=== PATIENT | female | born 1955 | race Hispanic/Latino ===

== ENCOUNTER 2020-04-15 06:40 | Inpatient (IN) | payer OTHER ==
[~2020-04-15] VITALS: Ht 188 cm; Wt 77.1 kg
[2020-04-15] VITALS (9 sets, daily range): BP systolic 142–154; BP diastolic 52–69
[2020-04-15] MEDS ORDERED: ACETAMINOPHEN EXTRA STRENGTH 500 MG TABLET ONE (06:52)
[2020-04-15] MEDS ORDERED: ASPIRIN 325 MG TABLET ONE (06:56)
[2020-04-15 07:00] LABS: BASOPHILS % (AUTO) 1.3 % (0.0-5.0); EOSINOPHILS % (AUTO) 6.6 % (0.0-8.0); HEMATOCRIT 34.7 % (36-48); LYMPHOCYTES % (AUTO) 31.9 % (21.0-51.0); MEAN CORPUSCULAR HEMOGLOBIN 29.9 pg (27.0-33.0); MEAN CORPUSCULAR HGB CONC 32.3 g/dL (32.0-36.0); MEAN CORPUSCULAR VOLUME 92.8 fL (79-99); MONOCYTES % (AUTO) 8.8 % (3.0-13.0); NEUTROPHILS % (AUTO) 51.2 % (40.0-77.0); PLATELET COUNT (AUTO) 238 K/uL (130-400); RED BLOOD CELL COUNT(AUTO) 3.74 MIL/uL (4.00-5.50); RED CELL DISTRIBUTION WIDTH 13.4 % (11.0-15.5); WHITE BLOOD COUNT (AUTO) 6.3 K/uL (4.8-10.8)
[2020-04-15] MEDS ORDERED: NITROGLYCERIN 1GM/1 INCH PACKET TD ONE (07:12)
[2020-04-15 07:15] LABS: INR 0.96 (0.85-1.15); PARTIAL THROMBOPLASTIN TIME 25.5 SEC (26.3-35.5); PROTHROMBIN TIME 10.4 SEC (9.6-11.6)
[2020-04-15 07:19] LABS: ALBUMIN 3.8 g/dL (3.5-5.0); BILIRUBIN,TOTAL 0.4 mg/dL (0.2-1.0); CREATININE 1.5 mg/dL (0.5-1.5); POTASSIUM 4.1 mmol/L (3.5-5.1); TOTAL PROTEIN, SERUM 8.7 g/dL (6.0-8.3)
[2020-04-15 07:35] LABS: B-TYPE NATRIURETIC PEPTIDE 90 pg/mL (0-100)
[2020-04-15] MEDS: LISINOPRIL 20 MG TABLET PO SCH (09:30)
[2020-04-15] MEDS ORDERED: ACETAMINOPHEN 325 MG TAB PO PRN ×2 (11:15)
[2020-04-15] MEDS ORDERED: SODIUM CHLORIDE 0.9% 1000ML 1,000 ML IV SCH ×3 (11:15→14:45)
[2020-04-15] MEDS ORDERED: ONDANSETRON HCL 4 MG/2 ML VIAL IV PRN (11:15)
[2020-04-15] MEDS ORDERED: MORPHINE SULFATE 2 MG/ML 1ML SYG IV PRN (11:15)
[2020-04-15] MEDS ORDERED: NITROGLYCERIN 0.4 MG SL TAB SL PRN (11:15)
[2020-04-15] MEDS ORDERED: LACTULOSE 20 GM/30 ML UDCUP PO PRN (11:15)
[2020-04-15] MEDS ORDERED: LIDOCAINE HCL 2% 20ML ONE (12:19)
[2020-04-15] MEDS ORDERED: NITROGLYCERIN 2 MG/VIAL VIAL IV ONE (12:19)
[2020-04-15] MEDS ORDERED: MIDAZOLAM HCL 1 MG/ML 2ML VIAL ONE (12:19)
[2020-04-15] MEDS ORDERED: IOHEXOL-350 50ML VIAL IV ONE (12:19)
[2020-04-15] MEDS ORDERED: IOHEXOL 350 MG/ML 100ML INFUS..BTL IV ONE (12:19)
[2020-04-15] MEDS ORDERED: HEPARIN SODIUM 1000UNIT/ML 10ML VIAL ONE (12:19)
[2020-04-15] MEDS ORDERED: BIVALIRUDIN 250 MG/VIAL IV ONE (13:11)
[2020-04-15] MEDS ORDERED: LABETALOL HCL 5 MG/ML 20ML VIAL IV ONE (14:02)
--- NOTE | 2020-04-15 15:10 | NUR ---
RECEIVED PATIENT FROM APPRENTICE FUNERAL DIRECTOR, DRESSING TO RIGHT GROIN DRY AND INTACT, NO HEMATOMA NOTED. PATIENT DENIES CHEST PAIN. V/S STABLE
[2020-04-15] MEDS ORDERED: METF-444 PO (15:58)
[2020-04-15] MEDS ORDERED: LISI-613 PO (15:58)
[2020-04-15] MEDS ORDERED: AMLO-257 PO (15:58)
[2020-04-15] MEDS ORDERED: FURO20TA4 PO (15:58)
--- NOTE | 2020-04-15 17:24 | NUR ---
REPORT GIVEN TO YOVANY RN PATIENT WILL BE TRANSFERRED TO ROOM 422. PATIENT AT THIS TIME DENIES CHEST PAIN, DRESSING TO RIGHT GROIN DRY AND INTACT, NO HEMATOMA NOTED. V/S STABLE
--- NOTE | 2020-04-15 20:30 | NUR ---
PATIENT A/OX3, DENIES CHEST PAIN OR SOB. R GROIN SOFT. DRESSING CDI. WILL CONTINUE TO MONITOR
[2020-04-15] MEDS: METOPROLOL TARTRATE 50 MG TAB PO SCH (20:52)
[2020-04-15] MEDS ORDERED: METO50 PO (20:55)
[2020-04-15] MEDS ORDERED: METOPROLOL TARTRATE 25 MG TAB PO SCH (21:00)
[2020-04-15] MEDS ORDERED: DEXTROSE 50%-WATER 50 ML DISP.SYRIN IV PRN (21:30)
[2020-04-15] MEDS ORDERED: GLUCAGON 1MG KIT 1 MG ML IM PRN (21:30)
[2020-04-15] MEDS ORDERED: INSULIN HUMULIN R 100 UNIT/ML 3ML ONE (22:37)
[2020-04-15] MEDS: FAMOTIDINE/PF 20 MG/2 ML VIAL IV SCH (22:38)
[2020-04-16] VITALS (7 sets, daily range): BP systolic 105–141; BP diastolic 48–72
[2020-04-16] MEDS: INSULIN HUMULIN R 100 UNIT/ML 3ML SQ SCH ×4 (06:04→21:03)
[2020-04-16 06:32] LABS: BASOPHILS % (AUTO) 0.8 % (0.0-5.0); EOSINOPHILS % (AUTO) 4.1 % (0.0-8.0); HEMATOCRIT 30.3 % (36-48); LYMPHOCYTES % (AUTO) 19.5 % (21.0-51.0); MEAN CORPUSCULAR HGB CONC 32.7 g/dL (32.0-36.0); MEAN CORPUSCULAR VOLUME 91.8 fL (79-99); MONOCYTES % (AUTO) 7.6 % (3.0-13.0); NEUTROPHILS % (AUTO) 67.9 % (40.0-77.0); PLATELET COUNT (AUTO) 222 K/uL (130-400); RED CELL DISTRIBUTION WIDTH 13.2 % (11.0-15.5); WHITE BLOOD COUNT (AUTO) 7.1 K/uL (4.8-10.8)
[2020-04-16 06:46] LABS: POTASSIUM 4.4 mmol/L (3.5-5.1)
[2020-04-16 06:47] LABS: ALBUMIN 3.2 g/dL (3.5-5.0); BILIRUBIN,TOTAL 0.3 mg/dL (0.2-1.0); CREATININE 1.3 mg/dL (0.5-1.5); TOTAL PROTEIN, SERUM 7.2 g/dL (6.0-8.3)
[2020-04-16] MEDS ORDERED: INSULIN HUMULIN R 100 UNIT/ML 3ML SQ SCH (07:30)
[2020-04-16] MEDS: FAMOTIDINE/PF 20 MG/2 ML VIAL IV SCH (07:36)
[2020-04-16] MEDS: LISINOPRIL 20 MG TABLET PO SCH (07:47)
[2020-04-16] MEDS: ASPIRIN 325 MG TABLET PO SCH (07:47)
[2020-04-16] MEDS: METOPROLOL TARTRATE 50 MG TAB PO SCH ×2 (07:47→21:01)
[2020-04-16] MEDS: AMLODIPINE BESYLATE 5 MG TAB PO SCH (07:47)
--- NOTE | 2020-04-16 08:00 | NUR ---
ASSESSMENT PT IS AAOX3 DENIES CP DENIES SOB DENIES NV NO COMPLAINTS AT THIS TIME SITTING UPRIGHT IN CHAIR. CALL LIGHT WITHIN REACH.
[2020-04-16] MEDS ORDERED: LISINOPRIL 10 MG TABLET PO SCH (09:00)
[2020-04-16] MEDS ORDERED: ASPIRIN 81MG TAB.CHEW PO SCH (09:00)
[2020-04-16] MEDS ORDERED: AMLODIPINE BESYLATE 5 MG TAB PO SCH (09:00)
--- NOTE | 2020-04-16 11:17 | NUR ---
SPOKE TO PATIENT AT BEDSIDE FOR DC PLANNING PATIENT LIVES WITH SON NOLVIA, WHO WILL PROVIDE TRANSPORT HOME, [facility] SEES ANTO[facility] [place] AT [facility] IN [place]. [facility] HAD FALL WITH HIP FRACTURE IN AUGUST SO POST OP OBTAINED W/CHAIR, CANE AND WALKER- RECOVERED AND USES NONE OF THEM NOW. NO NEB OR OXYGEN. PAITENT FOR POSSIBLE AVR IN AM, SPOKE OT RODRIGO SOTELO- [facility] WOULD LIKE TO ENSURE VISIT BY FAMILY PRIOR TO SURGERY. WILL FOLLOW Addendum: 04/16/20 at 1123 by JULIEN VILLALTA RN CM Amended: Links added.
[2020-04-16] MEDS: INSULIN GLARGINE 100 UNITS/ML 10 ML VIAL SQ SCH (21:04)
[2020-04-17 00:43] LABS: APPEARANCE,URINE Clear (CLEAR); BILIRUBIN,URINE Negative (NEGATIVE); COLOR,URINE Yellow (YELLOW); GLUCOSE, URINE (UA) TRACE mg/dL (NEGATIVE); KETONES,URINE Negative (NEGATIVE); LEUKOCYTE ESTERASE ,URINE Small (NEGATIVE); NITRATE,URINE Negative (NEGATIVE); OCCULT BLOOD,URINE Trace (NEGATIVE); PH,URINE 5.5 (5.0-8.0); PROTEIN,URINE POS 2+ mg/dL (NEGATIVE); UROBILINOGEN,URINE 0.2 mg/dL (0.2-1.0)
[2020-04-17 00:48] LABS: BACTERIA,URINE None Seen /HPF (None Seen); RBC,URINE 0-1 /HPF (0-1); SQUAMOUS EPITHELIAL CELL,UR Rare /HPF (0-2)
[2020-04-17 03:59] VITALS: BP 130/64
[2020-04-17 05:11] LABS: BASOPHILS % (AUTO) 0.9 % (0.0-5.0); EOSINOPHILS % (AUTO) 5.7 % (0.0-8.0); HEMATOCRIT 29.5 % (36-48); LYMPHOCYTES % (AUTO) 28.3 % (21.0-51.0); MEAN CORPUSCULAR HGB CONC 32.2 g/dL (32.0-36.0); MEAN CORPUSCULAR VOLUME 93.1 fL (79-99); MONOCYTES % (AUTO) 9.2 % (3.0-13.0); NEUTROPHILS % (AUTO) 55.6 % (40.0-77.0); PLATELET COUNT (AUTO) 202 K/uL (130-400); RED BLOOD CELL COUNT(AUTO) 3.17 MIL/uL (4.00-5.50); RED CELL DISTRIBUTION WIDTH 13.3 % (11.0-15.5); WHITE BLOOD COUNT (AUTO) 6.7 K/uL (4.8-10.8)
[2020-04-17 05:33] LABS: ALBUMIN 3.1 g/dL (3.5-5.0); BILIRUBIN,TOTAL 0.3 mg/dL (0.2-1.0); CREATININE 1.4 mg/dL (0.5-1.5); POTASSIUM 3.9 mmol/L (3.5-5.1); TOTAL PROTEIN, SERUM 7.2 g/dL (6.0-8.3)
[2020-04-17] MEDS: INSULIN HUMULIN R 100 UNIT/ML 3ML SQ SCH ×4 (06:31→15:37)
[2020-04-17] MEDS: FAMOTIDINE/PF 20 MG/2 ML VIAL IV SCH (07:11)
[2020-04-17] MEDS: AMLODIPINE BESYLATE 5 MG TAB PO SCH (07:11)
[2020-04-17] MEDS: METOPROLOL TARTRATE 50 MG TAB PO SCH ×2 (07:11→20:51)
[2020-04-17] MEDS: ASPIRIN 325 MG TABLET PO SCH (07:11)
[2020-04-17] MEDS: LISINOPRIL 20 MG TABLET PO SCH (07:11)
[2020-04-17 08:04] VITALS: BP 133/57
--- NOTE | 2020-04-17 08:45 | NUR ---
ASSESSMENT PT IS AAOX3 DENIES CP DENIES SOB DENIES NV NO COMPLAINTS AT THIS TIME SITTING UPRIGHT IN CHAIR, AM MEDS GIVEN. CALL LIGHT WITHIN REACH.
[2020-04-17] MEDS ORDERED: SODIUM CHLORIDE 0.9% 1000ML 1,000 ML IV SCH (09:30)
--- NOTE | 2020-04-17 10:30 | NUR ---
MD ROUNDS DR Herrera CHI / DR REES ROUNDED DR Herrera CHI ORDERED NS AT 50CC HR X1 LITER DR REES GAVE NO SPECIFIC DATE FOR VALVE SURGERY, PLAN PROBABLY FOR TOMORR OR TUESDAY NO PREOP ORDERED RECEIVED
[2020-04-17 11:00] VITALS: BP 122/57
[2020-04-17 15:48] VITALS: BP 136/76
--- NOTE | 2020-04-17 17:20 | NUR ---
STATUS NO COMPLAINTS DENIES CP DENIES SOB DENIES NV. SITTING UPRIGHT IN CHAIR. CALL LIGHT WITHIN REACH.
[2020-04-17 19:42] VITALS: BP 150/74
[2020-04-17] MEDS: INSULIN GLARGINE 100 UNITS/ML 10 ML VIAL SQ SCH (20:52)
--- NOTE | 2020-04-17 20:54 | NUR ---
INSULIN UNABLE TO SCAN 4 UNITS OF REGULAR INSULIN. WITNESSED BY MORGAN LIU RN. PT GIVEN 4 UNITS REGULAR INSULIN PER SLIDING SCALE FOR BLOOD SUGAR OF 194, AND PT GIVEN SCHEDULED LANTUS 10 UNITS.
[2020-04-17 23:37] VITALS: BP 121/53
[2020-04-18] VITALS (12 sets, daily range): BP systolic 115–185; BP diastolic 43–74
[2020-04-18 05:02] LABS: BASOPHILS % (AUTO) 0.8 % (0.0-5.0); EOSINOPHILS % (AUTO) 5.1 % (0.0-8.0); HEMATOCRIT 28.5 % (36-48); LYMPHOCYTES % (AUTO) 22.9 % (21.0-51.0); MEAN CORPUSCULAR HEMOGLOBIN 30.1 pg (27.0-33.0); MEAN CORPUSCULAR HGB CONC 32.3 g/dL (32.0-36.0); MEAN CORPUSCULAR VOLUME 93.1 fL (79-99); MONOCYTES % (AUTO) 7.9 % (3.0-13.0); PLATELET COUNT (AUTO) 213 K/uL (130-400); RED BLOOD CELL COUNT(AUTO) 3.06 MIL/uL (4.00-5.50); RED CELL DISTRIBUTION WIDTH 13.2 % (11.0-15.5); WHITE BLOOD COUNT (AUTO) 7.6 K/uL (4.8-10.8)
[2020-04-18 05:19] LABS: ALBUMIN 3.1 g/dL (3.5-5.0); BILIRUBIN,TOTAL 0.2 mg/dL (0.2-1.0); CREATININE 1.2 mg/dL (0.5-1.5); POTASSIUM 4.1 mmol/L (3.5-5.1); TOTAL PROTEIN, SERUM 7.3 g/dL (6.0-8.3)
[2020-04-18] MEDS: INSULIN HUMULIN R 100 UNIT/ML 3ML SQ SCH (05:53)
--- NOTE | 2020-04-18 07:30 | NUR ---
ASSESSMENT ENCOUNTERED PT A&OX3, CALM COOPERATIVE AND DOES NOT APPEAR TO BE IN ANY DISTRESS NOR ANY NEURO DEFICITS PRESENT. PT DENIES PAIN, SOB, NAUSEA. PT IS AMBULATORY, GAIT STEADY AND STRONG WITH STAND BY ASSIST. RT GROIN SOFT NONTENDER WITH NO OOZING OR HEMATOMA PRESENT. DP/PT PULSES PALPABLE. PT IS NPO FOR PROCEDURE BY DR REES. CALL LIGHT WITHIN REACH.
[2020-04-18] MEDS: METOPROLOL TARTRATE 50 MG TAB PO SCH (08:08)
[2020-04-18] MEDS: FAMOTIDINE/PF 20 MG/2 ML VIAL IV SCH (08:08)
[2020-04-18] MEDS: AMLODIPINE BESYLATE 5 MG TAB PO SCH (09:00)
[2020-04-18] MEDS: LISINOPRIL 20 MG TABLET PO SCH (09:00)
[2020-04-18] MEDS: ASPIRIN 325 MG TABLET PO SCH (09:00)
[2020-04-18] MEDS ORDERED: NOREPINEPHRINE BITARTRATE 8 MG in DEXTROSE 5%-WATER 250 ML IV PRN (09:30)
[2020-04-18] MEDS ORDERED: AMINOCAPROIC ACID 15,000 MG in SODIUM CHLORIDE 0.9% 500ML 420 ML IV PRN (09:30)
[2020-04-18] MEDS ORDERED: EPINEPHRINE 10 MG in SODIUM CHLORIDE 0.9% 240 ML IV PRN ×2 (09:30→15:00)
[2020-04-18] MEDS ORDERED: CEFAZOLIN SODIUM 1 GM VIAL ONE ×2 (09:37→12:17)
[2020-04-18] MEDS ORDERED: NITROGLYCERIN 50 MG/D5% WATER 1 BOT ONE (10:15)
[2020-04-18] MEDS ORDERED: ROPIVACAINE 0.5% 5MG/ML 30ML IJ ONE (10:50)
[2020-04-18] MEDS ORDERED: SODIUM CHLORIDE 0.9% 1000ML 1,000 ML IV ONE (11:09)
[2020-04-18] MEDS ORDERED: DELNIDO FORMULA 1 BAG IV ONE (11:37)
[2020-04-18] MEDS ORDERED: ESMOLOL HCL 10 MG/ML 10 ML VIAL ONE (12:03)
[2020-04-18] MEDS ORDERED: EPINEPHRINE 1 MG/ML AMPULE ONE (12:03)
[2020-04-18] MEDS ORDERED: HEPARIN SODIUM 1000UNIT/ML 10ML VIAL ONE (12:03)
[2020-04-18] MEDS ORDERED: LIDOCAINE PF 2% 5ML ABBOJECT ONE (12:03)
[2020-04-18] MEDS ORDERED: PROTAMINE SULFATE 10 MG/ML 25ML VIAL IV ONE ×2 (12:03→14:04)
[2020-04-18] MEDS ORDERED: MIDAZOLAM HCL 1 MG/ML 2ML VIAL ONE (12:04)
[2020-04-18] MEDS ORDERED: PROPOFOL 10 MG/ML 20ML VIAL IV ONE (12:04)
[2020-04-18] MEDS ORDERED: NOREPINEPHRINE BITARTRATE 1 MG/1 ML ML IV ONE (12:04)
[2020-04-18] MEDS ORDERED: ROCURONIUM 10MG/1ML SYR 10 MG/ML ML ONE (12:04)
[2020-04-18] MEDS ORDERED: SODIUM BICARB 50MEQ 50ML VIAL ONE ×2 (12:04→14:16)
[2020-04-18] MEDS ORDERED: FENTANYL CITRATE PF 50 MCG/1 ML 20ML VIAL IJ ONE (12:04)
[2020-04-18] MEDS ORDERED: AMINOCAPROIC ACID 250 MG/ML 20 ML VIAL IV ONE (12:04)
[2020-04-18] MEDS ORDERED: KETAMINE 50MG/ML SYRINGE 50 MG/ML DISP.SYRIN IV ONE (12:05)
[2020-04-18] MEDS ORDERED: CEFAZOLIN SODIUM 1 GM VIAL IVP ONE ×2 (12:22)
[2020-04-18 12:49] LABS: ABG BASE EXCESS -4.3 mmol/L (-2.0-3.0); ABG HCO3 20.4 mmol/L (21.0-28.0); ABG OXYGEN SATURATION 98.7 % (95.0-99.0); ABG PCO2 36 mmHg (32-45)
[2020-04-18] MEDS ORDERED: CEFAZOLIN SODIUM 1 GM VIAL IVP PRN (13:00)
[2020-04-18 13:46] LABS: ABG BASE EXCESS -4.2 mmol/L (-2.0-3.0); ABG HCO3 19.3 mmol/L (21.0-28.0); ABG OXYGEN SATURATION 98.5 % (95.0-99.0); ABG PCO2 29 mmHg (32-45)
[2020-04-18] MEDS ORDERED: PROTAMINE SULFATE 10 MG/ML 5 ML VIAL ONE ×2 (14:04)
[2020-04-18 14:16] LABS: ABG BASE EXCESS 0.8 mmol/L (-2.0-3.0); ABG HCO3 23.7 mmol/L (21.0-28.0); ABG OXYGEN SATURATION 98.5 % (95.0-99.0); ABG PCO2 31 mmHg (32-45)
[2020-04-18] MEDS ORDERED: AMIODARONE HCL 50 MG/ML 3 ML VIAL ONE (14:17)
[2020-04-18] MEDS ORDERED: AMINOCAPROIC ACID 15,000 MG in SODIUM CHLORIDE 0.9% 250 ML IV SCH (14:30)
[2020-04-18] MEDS ORDERED: ACETAMINOPHEN 650 MG SUPPOSITORY RC PRN (14:30)
[2020-04-18] MEDS ORDERED: DEXTROSE 50%-WATER 50 ML DISP.SYRIN IV PRN (14:30)
[2020-04-18] MEDS ORDERED: NOREPINEPHRINE 4MG/NS 250ML 250 ML IV PRN (14:30)
[2020-04-18] MEDS ORDERED: MAGNESIUM 2GM PREMIX 50ML 50 ML IV PRN (14:30)
[2020-04-18] MEDS ORDERED: GLUCAGON 1MG KIT 1 MG ML IM PRN (14:30)
[2020-04-18] MEDS ORDERED: SODIUM CHLORIDE 0.9% 10 ML VIAL IVP PRN (14:30)
[2020-04-18] MEDS ORDERED: NITROGLYCERIN 50 MG/D5% WATER 250 BOT IV SCH (14:30)
[2020-04-18] MEDS ORDERED: MORPHINE SULFATE 2 MG/ML 1ML SYG IV PRN ×2 (14:30→15:15)
[2020-04-18] MEDS ORDERED: SODIUM CHLORIDE 0.9% 500ML 500 ML IV SCH (14:30)
[2020-04-18] MEDS ORDERED: INSULIN REGULAR, HUMAN 3ML 100 UNIT in SODIUM CHLORIDE 0.9% 99 ML IV SCH ×4 (14:30→15:00)
[2020-04-18] MEDS ORDERED: SODIUM CHLORIDE 0.9% 1000ML 1,000 ML IV SCH (14:30)
[2020-04-18] MEDS ORDERED: ALBUMIN (HUMAN) 5% 250 ML IV PRN (14:30)
[2020-04-18] MEDS ORDERED: TRAMADOL HCL 50 MG TABLET PO PRN (14:30)
[2020-04-18] MEDS ORDERED: MORPHINE SULFATE 4 MG/1ML SYG IV PRN (14:30)
[2020-04-18] MEDS ORDERED: PROPOFOL 1000 MG/100 ML 100 ML IV PRN (14:30)
[2020-04-18] MEDS ORDERED: POTASSIUM PHOS 15 mMOL+NS250ML 250 ML IV PRN (14:30)
[2020-04-18] MEDS ORDERED: EPINEPHRINE 10 MG in DEXTROSE 5%-WATER 250 ML IV PRN (14:30)
[2020-04-18 14:52] LABS: ABG HCO3 21.3 mmol/L (21.0-28.0); ABG OXYGEN SATURATION 97.5 % (95.0-99.0); ABG PCO2 35 mmHg (32-45)
[2020-04-18 15:20] LABS: ABG BASE EXCESS -5.6 mmol/L (-2.0-3.0); ABG HCO3 18.7 mmol/L (21.0-28.0); ABG OXYGEN SATURATION 97.4 % (95.0-99.0); ABG PCO2 33 mmHg (32-45)
[2020-04-18] MEDS: SODIUM BICARB 50MEQ 50ML VIAL IV PRN ×2 (15:32→17:36)
[2020-04-18 16:03] LABS: HEMATOCRIT 26.4 % (36-48); MEAN CORPUSCULAR HEMOGLOBIN 30.8 pg (27.0-33.0); MEAN CORPUSCULAR HGB CONC 33.7 g/dL (32.0-36.0); MEAN CORPUSCULAR VOLUME 91.3 fL (79-99); RED BLOOD CELL COUNT(AUTO) 2.89 MIL/uL (4.00-5.50); RED CELL DISTRIBUTION WIDTH 13.4 % (11.0-15.5); WHITE BLOOD COUNT (AUTO) 18.5 K/uL (4.8-10.8)
[2020-04-18 16:17] LABS: CREATININE 1.1 mg/dL (0.5-1.5); MAGNESIUM 2.9 mg/dL (1.80-2.40); PHOSPHORUS 3.8 mg/dL (2.5-4.9); POTASSIUM 3.5 mmol/L (3.5-5.1)
[2020-04-18 16:18] LABS: INR 1.13 (0.85-1.15); PARTIAL THROMBOPLASTIN TIME 26.1 SEC (26.3-35.5); PROTHROMBIN TIME 12.1 SEC (9.6-11.6)
[2020-04-18] MEDS: POTASSIUM CHLORIDE 20MEQ/100ML 100 ML IV PRN ×3 (16:37→22:29)
[2020-04-18] MEDS: CALCIUM GLUCONATE 1 GM in SODIUM CHLORIDE 0.9% 50 ML IV PRN ×3 (16:44→22:30)
[2020-04-18 17:19] LABS: ABG HCO3 21.1 mmol/L (21.0-28.0); ABG OXYGEN SATURATION 97.7 % (95.0-99.0); ABG PCO2 30 mmHg (32-45)
[2020-04-18] MEDS: Q-PUMP 1 EACH IRRIG SCH (17:36)
[2020-04-18 18:30] LABS: ABG BASE EXCESS -0.3 mmol/L (-2.0-3.0); ABG HCO3 23.4 mmol/L (21.0-28.0); ABG OXYGEN SATURATION 96.8 % (95.0-99.0); ABG PCO2 34 mmHg (32-45)
[2020-04-18] MEDS: CEFAZOLIN SODIUM 1 GM VIAL IV SCH (19:54)
[2020-04-18] MEDS ORDERED: INSULIN GLARGINE 100 UNITS/ML 10 ML VIAL SQ SCH (21:00)
[2020-04-18 22:26] LABS: ABG BASE EXCESS 0.9 mmol/L (-2.0-3.0); ABG HCO3 23.1 mmol/L (21.0-28.0); ABG OXYGEN SATURATION 97.3 % (95.0-99.0); ABG PCO2 29 mmHg (32-45)
[2020-04-19] VITALS (24 sets, daily range): BP systolic 100–176; BP diastolic 31–76
[2020-04-19 00:55] LABS: ABG BASE EXCESS 1.8 mmol/L (-2.0-3.0); ABG OXYGEN SATURATION 97.5 % (95.0-99.0); ABG PCO2 29 mmHg (32-45)
--- NOTE | 2020-04-19 01:03 | NUR ---
PT FULLY AWAKE, ABLE TO FOLLOW COMMANDS, NO NEUROLOGICAL DEFICIT NOTED. PT WITH STRONG BILATERAL HAND FLATWORK WASHER AND ABLE TO SUSTAIN HEAD LIFT.TOLERATED WEANING FROM VENT. ABG AND WEANING PARAMETERS COMPLETED. PT WITH NIP-32 AND VITAL CAPACITY OF 1099.PT EXTUBATED PER CV PROTOCOL AND PLACED ON AFM 40%. TOLERATING WELL. INSTRUCTED ON TAKING DEEP BREATHS AND COUGHING AND IN USE OF HEART PILLOW. NODS UNDERSTANDING. CONTINUE TO MONITOR PT.
[2020-04-19] MEDS: ONDANSETRON HCL 4 MG/2 ML VIAL IV PRN ×2 (01:51→07:50)
[2020-04-19 02:50] LABS: ABG BASE EXCESS 1.1 mmol/L (-2.0-3.0); ABG HCO3 24.4 mmol/L (21.0-28.0); ABG OXYGEN SATURATION 97.3 % (95.0-99.0); ABG PCO2 33 mmHg (32-45)
[2020-04-19 03:19] LABS: BASOPHILS % (AUTO) 0.2 % (0.0-5.0); EOSINOPHILS % (AUTO) 0.8 % (0.0-8.0); HEMATOCRIT 25.5 % (36-48); LYMPHOCYTES % (AUTO) 7.5 % (21.0-51.0); MEAN CORPUSCULAR HEMOGLOBIN 30.3 pg (27.0-33.0); MEAN CORPUSCULAR HGB CONC 32.9 g/dL (32.0-36.0); MEAN CORPUSCULAR VOLUME 92.1 fL (79-99); MONOCYTES % (AUTO) 7.8 % (3.0-13.0); NEUTROPHILS % (AUTO) 83.3 % (40.0-77.0); PLATELET COUNT (AUTO) 112 K/uL (130-400); RED BLOOD CELL COUNT(AUTO) 2.77 MIL/uL (4.00-5.50); RED CELL DISTRIBUTION WIDTH 13.7 % (11.0-15.5); WHITE BLOOD COUNT (AUTO) 11.1 K/uL (4.8-10.8)
[2020-04-19] MEDS: CEFAZOLIN SODIUM 1 GM VIAL IV SCH ×2 (03:24→11:08)
[2020-04-19 03:39] LABS: ALBUMIN 2.9 g/dL (3.5-5.0); BILIRUBIN,TOTAL 0.3 mg/dL (0.2-1.0); CREATININE 1.6 mg/dL (0.5-1.5); MAGNESIUM 2.5 mg/dL (1.80-2.40); PHOSPHORUS 3.5 mg/dL (2.5-4.9); POTASSIUM 3.9 mmol/L (3.5-5.1); TOTAL PROTEIN, SERUM 6.2 g/dL (6.0-8.3)
[2020-04-19 03:41] LABS: INR 1.06 (0.85-1.15); PARTIAL THROMBOPLASTIN TIME 22.5 SEC (26.3-35.5); PROTHROMBIN TIME 11.4 SEC (9.6-11.6)
[2020-04-19] MEDS: TRAMADOL HCL 50 MG TABLET PO PRN (04:57)
[2020-04-19] MEDS: FAMOTIDINE/PF 20 MG/2 ML VIAL IV SCH (07:50)
[2020-04-19] MEDS ORDERED: ASPIRIN 81MG TAB.CHEW PO SCH (09:00)
[2020-04-19 12:51] LABS: CREATININE 1.5 mg/dL (0.5-1.5); MAGNESIUM 2.4 mg/dL (1.80-2.40); POTASSIUM 3.7 mmol/L (3.5-5.1)
[2020-04-19] MEDS: CALCIUM GLUCONATE 1 GM in SODIUM CHLORIDE 0.9% 50 ML IV PRN (13:10)
[2020-04-19 15:21] LABS: PROTEIN,URINE RANDOM 77.7 mg/dL (0-11.9)
[2020-04-19] MEDS: Q-PUMP 1 EACH IRRIG SCH (17:00)
[2020-04-19] MEDS ORDERED: FUROSEMIDE 10 MG/ML 2ML VIAL IV SCH (21:00)
[2020-04-20] VITALS (16 sets, daily range): BP systolic 113–173; BP diastolic 48–85
[2020-04-20 05:29] LABS: CREATININE 1.3 mg/dL (0.5-1.5); HEMATOCRIT 24.5 % (36-48); MEAN CORPUSCULAR HEMOGLOBIN 30.2 pg (27.0-33.0); MEAN CORPUSCULAR HGB CONC 32.2 g/dL (32.0-36.0); MEAN CORPUSCULAR VOLUME 93.5 fL (79-99); POTASSIUM 3.6 mmol/L (3.5-5.1); RED BLOOD CELL COUNT(AUTO) 2.62 MIL/uL (4.00-5.50); RED CELL DISTRIBUTION WIDTH 13.9 % (11.0-15.5); WHITE BLOOD COUNT (AUTO) 13.6 K/uL (4.8-10.8)
[2020-04-20 06:04] LABS: % IRON SATURATION 13.3 % (22-44)
[2020-04-20] MEDS: POTASSIUM CHLORIDE 20MEQ/100ML 100 ML IV PRN (06:12)
[2020-04-20] MEDS ORDERED: FUROSEMIDE 20 MG TABLET PO SCH (09:00)
[2020-04-20] MEDS: FAMOTIDINE/PF 20 MG/2 ML VIAL IV SCH (09:07)
[2020-04-20] MEDS: ASPIRIN 81MG TAB.CHEW PO SCH (09:07)
[2020-04-20] MEDS: METOPROLOL TARTRATE 25 MG TAB PO SCH ×2 (09:07→20:27)
[2020-04-20] MEDS: TRAMADOL HCL 50 MG TABLET PO PRN (09:08)
[2020-04-20] MEDS ORDERED: COMPOUND IV MISC 1 EACH IVSOLN MISC PRN (10:15)
[2020-04-20] MEDS: IRON SUCROSE COMPLEX 100 MG in SODIUM CHLORIDE 0.9% 50 ML IV SCH (11:30)
[2020-04-20] MEDS: INSULIN HUMULIN R 100 UNIT/ML 3ML SQ SCH ×3 (11:30→20:27)
--- NOTE | 2020-04-20 15:15 | NUR ---
CREWS CATHETER REMOVED. PATIENT EDUCATED ON NEED TO VOID IN 8 HRS. REPORT CALLED TO [facility] ON 4TH FLOOR. ALL QUESTIONS ANSWERED.
--- NOTE | 2020-04-20 16:01 | NUR ---
RECEIVED PATIENT FROM ICU ROOM 222, REPORT FROM NIKKI LINO. PATIENT AT THIS TIME SITTING UP IN CARDIAC CHAIR, DENIES ANY PAIN, DRESSING TO STERNUM DRY AND INTACT. S/P RIGHT IJ REMOVAL DRESSING WITH MINIMAL SEROSANG DRAINAGE. PENDING TO VOID. SATURATING 95% ON 2LITERS NASAL CANNULA.
[2020-04-20] MEDS: Q-PUMP 1 EACH IRRIG SCH (17:00)
[2020-04-20] MEDS: FUROSEMIDE 20 MG TABLET PO SCH (17:14)
[2020-04-21] MEDS: FUROSEMIDE 20 MG TABLET PO SCH ×3 (02:20→17:43)
[2020-04-21 03:46] VITALS: BP 161/65
[2020-04-21] MEDS: ONDANSETRON HCL 4 MG/2 ML VIAL IV PRN (05:09)
[2020-04-21 05:16] LABS: HEMATOCRIT 25.2 % (36-48); MEAN CORPUSCULAR HEMOGLOBIN 29.9 pg (27.0-33.0); MEAN CORPUSCULAR HGB CONC 31.7 g/dL (32.0-36.0); PLATELET COUNT (AUTO) 55 K/uL (130-400); RED BLOOD CELL COUNT(AUTO) 2.68 MIL/uL (4.00-5.50); WHITE BLOOD COUNT (AUTO) 11.1 K/uL (4.8-10.8)
[2020-04-21] MEDS: INSULIN HUMULIN R 100 UNIT/ML 3ML SQ SCH ×4 (05:38→20:55)
[2020-04-21 05:47] LABS: PLATELET MORPHOLOGY COMMENT DECREASED
[2020-04-21 05:48] LABS: CREATININE 1.2 mg/dL (0.5-1.5); POTASSIUM 3.9 mmol/L (3.5-5.1)
[2020-04-21 08:26] VITALS: BP 168/74
[2020-04-21] MEDS: FAMOTIDINE/PF 20 MG/2 ML VIAL IV SCH (10:21)
[2020-04-21] MEDS: ASPIRIN 81MG TAB.CHEW PO SCH (10:22)
[2020-04-21] MEDS: LISINOPRIL 10 MG TABLET PO SCH ×2 (10:22→21:33)
[2020-04-21] MEDS: ENOXAPARIN SODIUM 30 MG/0.3 ML SQ SCH (10:24)
[2020-04-21] MEDS: METOPROLOL TARTRATE 25 MG TAB PO SCH ×2 (10:24→21:33)
[2020-04-21] MEDS: IRON SUCROSE COMPLEX 100 MG in SODIUM CHLORIDE 0.9% 50 ML IV SCH (12:17)
[2020-04-21 12:37] VITALS: BP 137/54
[2020-04-21 14:00] VITALS: BP 134/60
--- NOTE | 2020-04-21 14:00 | NUR ---
DR GARDINER CALL PLACED TO DR GARDINER TO MAKE AWARE PT HAVING EPISODE OF FLAT AFFECT, CONFUSED, AND NOT ABLE TO MOVE LEFT UPPER AND LOWER EXTREMITY. PT NOW ABLE TO MOVE LEFT UPPER AND LOWER EXTREMITY AND IS MORE VERBAL. BP 157/78 P 110 O2 SAT 84-89% ON ROOM AIR 18 RESPIRATIONS; VS NOW BP 139/67 P 103 O2 SAT 97% ON [address] AND TO ADMINISTER TYLENOL
--- NOTE | 2020-04-21 14:30 | NUR ---
MORE ALERT PT IN BED, AWAKE, ALERT AND ORIENTED TO PERSON AND PLACE. ABLE TO MOVE ALL EXTREMITIES, STATES FEELING BETTER
[2020-04-21] MEDS: ACETAMINOPHEN 325 MG TAB PO PRN (14:35)
--- NOTE | 2020-04-21 14:48 | NUR ---
CT PT TAKEN TO CT VIA BED WITH O2 PER NC. PT ALERT AND CALM.
[2020-04-21 16:00] VITALS: BP 121/65
[2020-04-21] MEDS: Q-PUMP 1 EACH IRRIG SCH (17:00)
--- NOTE | 2020-04-21 17:00 | NUR ---
PM ASSESSMENT PT AWAKE, ALERT, AND ORIENTED X 4. DENIES CHEST PAIN, DENIES SOB, NO LABORED RESPIRATIONS, O2 SAT 95-97% ON 2 L, MOVES ALL EXTREMITIES. OOB TO CHAIR, IS ENCOURAGED WHILE AWAKE.
[2020-04-21 20:34] VITALS: BP 123/58
[2020-04-21] MEDS: CLOPIDOGREL BISULFATE 75 MG TAB PO SCH (21:32)
[2020-04-22] VITALS (7 sets, daily range): BP systolic 120–151; BP diastolic 48–61
[2020-04-22] MEDS: FUROSEMIDE 20 MG TABLET PO SCH (04:57)
[2020-04-22 05:59] LABS: HEMATOCRIT 24.5 % (36-48); MEAN CORPUSCULAR HEMOGLOBIN 30.3 pg (27.0-33.0); MEAN CORPUSCULAR HGB CONC 32.7 g/dL (32.0-36.0); MEAN CORPUSCULAR VOLUME 92.8 fL (79-99); RED BLOOD CELL COUNT(AUTO) 2.64 MIL/uL (4.00-5.50); RED CELL DISTRIBUTION WIDTH 13.7 % (11.0-15.5); WHITE BLOOD COUNT (AUTO) 11.9 K/uL (4.8-10.8)
[2020-04-22 06:35] LABS: CREATININE 1.3 mg/dL (0.5-1.5); POTASSIUM 3.7 mmol/L (3.5-5.1)
[2020-04-22] MEDS: INSULIN HUMULIN R 100 UNIT/ML 3ML SQ SCH ×4 (07:19→21:11)
[2020-04-22] MEDS: ENOXAPARIN SODIUM 30 MG/0.3 ML SQ SCH (09:00)
--- NOTE | 2020-04-22 09:00 | NUR ---
AM ASSESSMENT PT AWAKE, ALERT , AND ORIENTED. DENIES CHEST PAIN, NO SOB OR LABORED RESPIRATIONS. OOB TO CHAIR AND AMBULATION ENCOURAGED. IS ENCOURAGED WHILE AWAKE. SURGICAL INCISIONS CLEAN, DRY, AND INTACT, NO REDNESS OR DRAINAGE. CALL LIGHT WITHIN REACH.
[2020-04-22] MEDS: FAMOTIDINE/PF 20 MG/2 ML VIAL IV SCH (09:45)
[2020-04-22] MEDS: TRAMADOL HCL 50 MG TABLET PO PRN (09:46)
[2020-04-22] MEDS: CLOPIDOGREL BISULFATE 75 MG TAB PO SCH (09:46)
[2020-04-22] MEDS: METOPROLOL TARTRATE 25 MG TAB PO SCH ×2 (09:46→20:43)
[2020-04-22] MEDS: ASPIRIN 81MG TAB.CHEW PO SCH (09:46)
[2020-04-22] MEDS: LISINOPRIL 10 MG TABLET PO SCH ×2 (09:47→20:43)
[2020-04-22] MEDS: IRON SUCROSE COMPLEX 100 MG in SODIUM CHLORIDE 0.9% 50 ML IV SCH (09:47)
[2020-04-23 04:03] VITALS: BP 115/51
[2020-04-23 06:27] LABS: MEAN CORPUSCULAR HEMOGLOBIN 30.3 pg (27.0-33.0); MEAN CORPUSCULAR HGB CONC 32.9 g/dL (32.0-36.0); NUCLEATED RED BLOOD CELLS 0.5 % (0.0-0.19); RED BLOOD CELL COUNT(AUTO) 2.61 MIL/uL (4.00-5.50); RED CELL DISTRIBUTION WIDTH 13.6 % (11.0-15.5)
[2020-04-23 06:45] LABS: CREATININE 1.3 mg/dL (0.5-1.5); POTASSIUM 3.3 mmol/L (3.5-5.1)
[2020-04-23] MEDS: INSULIN HUMULIN R 100 UNIT/ML 3ML SQ SCH ×4 (06:49→22:54)
[2020-04-23] MEDS: ZOSYN 3.375GM+NS 50ML 50 ML IV SCH ×3 (06:57→21:22)
[2020-04-23 08:00] VITALS: BP 127/60
[2020-04-23] MEDS ORDERED: POTASSIUM CHLORIDE 20 MEQ ERTAB PO SCH (08:15)
[2020-04-23] MEDS: LISINOPRIL 10 MG TABLET PO SCH ×2 (09:00→21:22)
[2020-04-23] MEDS: CLOPIDOGREL BISULFATE 75 MG TAB PO SCH (09:10)
[2020-04-23] MEDS: ASPIRIN 81MG TAB.CHEW PO SCH (09:10)
[2020-04-23] MEDS: METOPROLOL TARTRATE 25 MG TAB PO SCH ×2 (09:10→21:22)
[2020-04-23] MEDS: FUROSEMIDE 20 MG TABLET PO SCH (09:10)
[2020-04-23] MEDS: FAMOTIDINE/PF 20 MG/2 ML VIAL IV SCH (09:11)
[2020-04-23] MEDS: IRON SUCROSE COMPLEX 100 MG in SODIUM CHLORIDE 0.9% 50 ML IV SCH (09:12)
[2020-04-23 11:00] VITALS: BP 130/60
[2020-04-23 15:00] VITALS: BP 140/59
[2020-04-23] MEDS ORDERED: POLYETHYLENE GLYCOL 3350 17 GM POWD.PACK ONE (18:00)
[2020-04-23] MEDS ORDERED: POLYETHYLENE GLYCOL 3350 17 GM POWD.PACK PO SCH (19:15)
[2020-04-23 20:28] VITALS: BP 126/53
[2020-04-23] MEDS: ACETAMINOPHEN 325 MG TAB PO PRN (22:55)
[2020-04-23 23:18] VITALS: BP 135/54
[2020-04-24 03:29] VITALS: BP 138/61
[2020-04-24 04:56] LABS: BASOPHILS % (AUTO) 0.3 % (0.0-5.0); EOSINOPHILS % (AUTO) 0.6 % (0.0-8.0); HEMATOCRIT 23.7 % (36-48); MEAN CORPUSCULAR HEMOGLOBIN 29.6 pg (27.0-33.0); MEAN CORPUSCULAR HGB CONC 32.1 g/dL (32.0-36.0); MEAN CORPUSCULAR VOLUME 92.2 fL (79-99); MONOCYTES % (AUTO) 9.2 % (3.0-13.0); NEUTROPHILS % (AUTO) 77.8 % (40.0-77.0); NUCLEATED RED BLOOD CELLS 0.2 % (0.0-0.19); PLATELET COUNT (AUTO) 49 K/uL (130-400); RED BLOOD CELL COUNT(AUTO) 2.57 MIL/uL (4.00-5.50); RED CELL DISTRIBUTION WIDTH 13.7 % (11.0-15.5); WHITE BLOOD COUNT (AUTO) 13.1 K/uL (4.8-10.8)
[2020-04-24 05:07] LABS: CREATININE 1.4 mg/dL (0.5-1.5); POTASSIUM 3.8 mmol/L (3.5-5.1)
[2020-04-24 05:10] LABS: HEMOGLOBIN A1C 7.9 % (4.0-6.0)
[2020-04-24 07:00] VITALS: BP 129/61
[2020-04-24] MEDS: INSULIN HUMULIN R 100 UNIT/ML 3ML SQ SCH ×4 (07:01→21:28)
[2020-04-24] MEDS: LISINOPRIL 10 MG TABLET PO SCH ×2 (08:52→21:27)
[2020-04-24] MEDS: FUROSEMIDE 20 MG TABLET PO SCH (08:52)
[2020-04-24] MEDS: ASPIRIN 81MG TAB.CHEW PO SCH (08:52)
[2020-04-24] MEDS: TRAMADOL HCL 50 MG TABLET PO PRN (08:53)
[2020-04-24] MEDS: POLYETHYLENE GLYCOL 3350 17 GM POWD.PACK PO SCH (08:53)
[2020-04-24] MEDS: IRON SUCROSE COMPLEX 100 MG in SODIUM CHLORIDE 0.9% 50 ML IV SCH (08:53)
[2020-04-24] MEDS: METOPROLOL TARTRATE 25 MG TAB PO SCH ×2 (08:53→21:27)
[2020-04-24] MEDS: ENOXAPARIN SODIUM 30 MG/0.3 ML SQ SCH (08:54)
[2020-04-24] MEDS: FAMOTIDINE 20MG TAB 20 MG TAB PO SCH (09:00)
[2020-04-24] MEDS: ZOSYN 3.375GM+NS 50ML 50 ML IV SCH ×3 (09:21→21:27)
[2020-04-24 11:00] VITALS: BP 155/74
--- NOTE | 2020-04-24 15:46 | NUR ---
RDSCREEN - LOS X 9. Pt admitted for Chest Pain, symptomatic Aortic Stenosis. Pt with Heart Healthy diet order in place, improved PO intake, No report of GI distress. PMH of CKD III, DM2, CHF. Monitored labs: WBC 13.11, H/H 7.6/23.7, BUN 34, GFR 40, BG 280, A1C 7.9, Ca 7.9, Alb 2.9. Post Aortic valve replacement. Obesity Class I. Mild BLE 2+ edema. Recommend modify diet to 60gm CC, Renal Non-Dialysis Recommend 60mL ProMod QD RD to follow up with nutrition education RD to continue to monitor. Please notify as additional nutrition concerns arise. Thank you. Addendum: 04/24/20 at [address] Amended: Links added.
[2020-04-24 16:00] VITALS: BP 120/44
[2020-04-24 19:00] VITALS: BP 156/67
[2020-04-24 23:00] VITALS: BP 123/47
[2020-04-25 03:00] VITALS: BP 107/44
[2020-04-25 04:44] LABS: MEAN CORPUSCULAR HEMOGLOBIN 29.5 pg (27.0-33.0); MEAN CORPUSCULAR HGB CONC 32.1 g/dL (32.0-36.0); NUCLEATED RED BLOOD CELLS 0.2 % (0.0-0.19); RED BLOOD CELL COUNT(AUTO) 2.61 MIL/uL (4.00-5.50); WHITE BLOOD COUNT (AUTO) 12.4 K/uL (4.8-10.8)
[2020-04-25] MEDS: ZOSYN 3.375GM+NS 50ML 50 ML IV SCH ×3 (06:25→21:19)
[2020-04-25] MEDS: INSULIN HUMULIN R 100 UNIT/ML 3ML SQ SCH ×4 (06:25→21:00)
[2020-04-25 08:00] VITALS: BP 124/45
[2020-04-25] MEDS: FAMOTIDINE 20MG TAB 20 MG TAB PO SCH (08:41)
[2020-04-25] MEDS: LISINOPRIL 10 MG TABLET PO SCH ×2 (08:41→21:19)
[2020-04-25] MEDS: METOPROLOL TARTRATE 25 MG TAB PO SCH ×2 (08:41→21:18)
[2020-04-25] MEDS: ASPIRIN 81MG TAB.CHEW PO SCH (08:41)
[2020-04-25] MEDS: FUROSEMIDE 20 MG TABLET PO SCH (08:42)
[2020-04-25] MEDS: ENOXAPARIN SODIUM 30 MG/0.3 ML SQ SCH (08:43)
[2020-04-25] MEDS: POLYETHYLENE GLYCOL 3350 17 GM POWD.PACK PO SCH (08:44)
[2020-04-25] MEDS: IRON SUCROSE COMPLEX 100 MG in SODIUM CHLORIDE 0.9% 50 ML IV SCH (08:51)
[2020-04-25 11:45] VITALS: BP 116/81
--- NOTE | 2020-04-25 13:13 | NUR ---
RD NOTE Pt was seen 04/25/20 for education. Pt was sitting in chair comfortably. Pt stated seeing a plans examiner/ possible RD at her clinic that has previously educated her on dm diet and tips to loose weight. Pt was informed on low sodium alternatives and encouraged to follow a carbohydrate counting diet for her dm. Pt was given a shopping list appropriate for CKD III. Pt was receptive and verbalized understanding. Handouts were given to pt in Setswana. Addendum: 04/25/20 at [address] Amended: Links added.
[2020-04-25 16:00] VITALS: BP 146/49
[2020-04-25 19:00] VITALS: BP 143/61
[2020-04-25 23:00] VITALS: BP 124/45
[2020-04-26 03:00] VITALS: BP 138/50
[2020-04-26] MEDS: ZOSYN 3.375GM+NS 50ML 50 ML IV SCH ×3 (05:22→21:00)
--- NOTE | 2020-04-26 05:49 | NUR ---
RECEIVED CALL FROM KRISTA PASCAL, SHE SAID PT HAS GRAM - RODS 1 OF 2 SET, PT IS ON ZOSYN CURRENTLY. NO ORDERS MADE
[2020-04-26 06:05] LABS: BASOPHILS % (AUTO) 0.4 % (0.0-5.0); EOSINOPHILS % (AUTO) 1.9 % (0.0-8.0); HEMATOCRIT 23.4 % (36-48); LYMPHOCYTES % (AUTO) 18.1 % (21.0-51.0); MEAN CORPUSCULAR HEMOGLOBIN 29.2 pg (27.0-33.0); MEAN CORPUSCULAR HGB CONC 31.6 g/dL (32.0-36.0); MEAN CORPUSCULAR VOLUME 92.5 fL (79-99); MONOCYTES % (AUTO) 8.7 % (3.0-13.0); NEUTROPHILS % (AUTO) 68.9 % (40.0-77.0); NUCLEATED RED BLOOD CELLS 0.3 % (0.0-0.19); PLATELET COUNT (AUTO) 99 K/uL (130-400); RED BLOOD CELL COUNT(AUTO) 2.53 MIL/uL (4.00-5.50); RED CELL DISTRIBUTION WIDTH 14.3 % (11.0-15.5); WHITE BLOOD COUNT (AUTO) 10.9 K/uL (4.8-10.8)
[2020-04-26 06:18] LABS: CREATININE 1.2 mg/dL (0.5-1.5); POTASSIUM 4.1 mmol/L (3.5-5.1)
[2020-04-26] MEDS: INSULIN HUMULIN R 100 UNIT/ML 3ML SQ SCH ×4 (07:30→20:47)
[2020-04-26 08:00] VITALS: BP 118/59
[2020-04-26] MEDS: ASPIRIN 81MG TAB.CHEW PO SCH (09:05)
[2020-04-26] MEDS: POLYETHYLENE GLYCOL 3350 17 GM POWD.PACK PO SCH (09:05)
[2020-04-26] MEDS: FUROSEMIDE 20 MG TABLET PO SCH (09:05)
[2020-04-26] MEDS: FAMOTIDINE 20MG TAB 20 MG TAB PO SCH (09:05)
[2020-04-26] MEDS: LISINOPRIL 10 MG TABLET PO SCH ×2 (09:05→20:44)
[2020-04-26] MEDS: METOPROLOL TARTRATE 25 MG TAB PO SCH ×2 (09:05→20:45)
[2020-04-26] MEDS: ENOXAPARIN SODIUM 30 MG/0.3 ML SQ SCH (09:06)
[2020-04-26] MEDS: ONDANSETRON HCL 4 MG/2 ML VIAL IV PRN (10:37)
[2020-04-26 11:14] VITALS: BP 142/57
[2020-04-26 16:00] VITALS: BP 139/60
[2020-04-26] MEDS: IRON SUCROSE COMPLEX 100 MG in SODIUM CHLORIDE 0.9% 50 ML IV SCH (16:32)
[2020-04-26 19:00] VITALS: BP 112/42
[2020-04-26 23:00] VITALS: BP 143/56
[2020-04-27] VITALS (7 sets, daily range): BP systolic 97–169; BP diastolic 47–82
[2020-04-27] MEDS: ZOSYN 3.375GM+NS 50ML 50 ML IV SCH ×3 (04:26→21:54)
[2020-04-27] MEDS: INSULIN HUMULIN R 100 UNIT/ML 3ML SQ SCH ×4 (05:48→21:58)
[2020-04-27 06:22] LABS: BASOPHILS % (AUTO) 0.6 % (0.0-5.0); EOSINOPHILS % (AUTO) 2.2 % (0.0-8.0); LYMPHOCYTES % (AUTO) 17.3 % (21.0-51.0); MEAN CORPUSCULAR HEMOGLOBIN 29.8 pg (27.0-33.0); MEAN CORPUSCULAR HGB CONC 31.3 g/dL (32.0-36.0); MEAN CORPUSCULAR VOLUME 95.2 fL (79-99); MONOCYTES % (AUTO) 7.8 % (3.0-13.0); NEUTROPHILS % (AUTO) 69.9 % (40.0-77.0); NUCLEATED RED BLOOD CELLS 0.4 % (0.0-0.19); PLATELET COUNT (AUTO) 127 K/uL (130-400); RED BLOOD CELL COUNT(AUTO) 2.52 MIL/uL (4.00-5.50); RED CELL DISTRIBUTION WIDTH 14.3 % (11.0-15.5); WHITE BLOOD COUNT (AUTO) 10.7 K/uL (4.8-10.8)
[2020-04-27 06:43] LABS: CREATININE 1.3 mg/dL (0.5-1.5); POTASSIUM 4.1 mmol/L (3.5-5.1)
[2020-04-27] MEDS: ASPIRIN 81MG TAB.CHEW PO SCH (08:52)
[2020-04-27] MEDS: FAMOTIDINE 20MG TAB 20 MG TAB PO SCH (08:52)
[2020-04-27] MEDS: POLYETHYLENE GLYCOL 3350 17 GM POWD.PACK PO SCH (08:53)
[2020-04-27] MEDS: METOPROLOL TARTRATE 25 MG TAB PO SCH ×2 (08:53→18:05)
[2020-04-27] MEDS: FUROSEMIDE 20 MG TABLET PO SCH (08:53)
[2020-04-27] MEDS: LISINOPRIL 10 MG TABLET PO SCH ×2 (08:53→21:50)
[2020-04-27] MEDS: ENOXAPARIN SODIUM 30 MG/0.3 ML SQ SCH (08:54)
[2020-04-27] MEDS: IRON SUCROSE COMPLEX 100 MG in SODIUM CHLORIDE 0.9% 50 ML IV SCH (08:54)
--- NOTE | 2020-04-27 16:20 | NUR ---
C/O CHEST PAIN PATIENT C/O OF MIDSTERNAL CHESTPAIN. REPORTED TO DR MCBRIDE. EKG ORDERED. TROPONIN LEVEL ORDERED STAT.
[2020-04-27] MEDS ORDERED: HYDRALAZINE HCL 20 MG/ML VIAL ONE (16:28)
[2020-04-27] MEDS ORDERED: HYDRALAZINE HCL 20 MG/ML VIAL IV SCH ×2 (16:30→18:55)
[2020-04-27] MEDS ORDERED: MORPHINE SULFATE 2 MG/ML 1ML SYG ONE (16:33)
[2020-04-27] MEDS ORDERED: NITROGLYCERIN 0.4 MG SL TAB SL ONE (16:35)
[2020-04-27] MEDS ORDERED: NITROGLYCERIN 0.4 MG SL TAB SL PRN (16:45)
[2020-04-27] MEDS ORDERED: MAG HYDROX/AL HYDROX/SIMETH ES 30 ML SUSP UDCUP PO PRN (17:00)
--- NOTE | 2020-04-27 17:00 | NUR ---
INFORMED DR. GARDINER OF PATIENT'S CHEST PAIN EPISODE. ORDERED: MAALOX PO. WILL CONTINUE TO MONITOR.
[2020-04-27] MEDS: TRAMADOL HCL 50 MG TABLET PO PRN (17:39)
[2020-04-27] MEDS ORDERED: MORPHINE SULFATE 2 MG/ML 1ML SYG IV ONE (17:45)
[2020-04-27] MEDS: ONDANSETRON HCL 4 MG/2 ML VIAL IV PRN (17:59)
[2020-04-27] MEDS ORDERED: MORPHINE SULFATE 2 MG/ML 1ML SYG IM ONE (18:55)
[2020-04-27] MEDS ORDERED: AMLODIPINE BESYLATE 5 MG TAB PO SCH (19:35)
[2020-04-27] MEDS: ACETAMINOPHEN 325 MG TAB PO PRN (21:54)
[2020-04-28] VITALS (8 sets, daily range): BP systolic 111–140; BP diastolic 46–85
--- NOTE | 2020-04-28 00:37 | NUR ---
NOTE SPOKE WITH KRISTA IN LAB AND SAID A SPECIMEN HAS ALREADY BEEN RECEIVED FOR RIGHT GROIN DRAINAGE.
[2020-04-28] MEDS: ZOSYN 3.375GM+NS 50ML 50 ML IV SCH ×3 (04:23→20:45)
[2020-04-28] MEDS: TRAMADOL HCL 50 MG TABLET PO PRN (04:23)
[2020-04-28] MEDS: INSULIN HUMULIN R 100 UNIT/ML 3ML SQ SCH ×4 (06:36→20:42)
[2020-04-28 06:51] LABS: BASOPHILS % (AUTO) 0.2 % (0.0-5.0); EOSINOPHILS % (AUTO) 0.2 % (0.0-8.0); HEMATOCRIT 24.9 % (36-48); LYMPHOCYTES % (AUTO) 6.3 % (21.0-51.0); MEAN CORPUSCULAR HEMOGLOBIN 29.9 pg (27.0-33.0); MEAN CORPUSCULAR HGB CONC 31.7 g/dL (32.0-36.0); MEAN CORPUSCULAR VOLUME 94.3 fL (79-99); MONOCYTES % (AUTO) 7.3 % (3.0-13.0); NEUTROPHILS % (AUTO) 84.8 % (40.0-77.0); PLATELET COUNT (AUTO) 167 K/uL (130-400); RED BLOOD CELL COUNT(AUTO) 2.64 MIL/uL (4.00-5.50); RED CELL DISTRIBUTION WIDTH 14.9 % (11.0-15.5); WHITE BLOOD COUNT (AUTO) 19.1 K/uL (4.8-10.8)
[2020-04-28 07:30] LABS: CREATININE 1.4 mg/dL (0.5-1.5); POTASSIUM 4.3 mmol/L (3.5-5.1)
[2020-04-28] MEDS: INSULIN GLARGINE 100 UNITS/ML 10 ML VIAL SQ SCH (09:47)
[2020-04-28] MEDS: FAMOTIDINE 20MG TAB 20 MG TAB PO SCH (09:49)
[2020-04-28] MEDS: ASPIRIN 81MG TAB.CHEW PO SCH (09:49)
[2020-04-28] MEDS: POLYETHYLENE GLYCOL 3350 17 GM POWD.PACK PO SCH (09:49)
[2020-04-28] MEDS: METOPROLOL TARTRATE 25 MG TAB PO SCH ×2 (09:49→21:27)
[2020-04-28] MEDS: FUROSEMIDE 20 MG TABLET PO SCH (09:49)
[2020-04-28] MEDS: LISINOPRIL 10 MG TABLET PO SCH ×2 (09:50→21:27)
[2020-04-28] MEDS: ENOXAPARIN SODIUM 30 MG/0.3 ML SQ SCH (09:51)
[2020-04-28 23:30] LABS: APPEARANCE,URINE Clear (CLEAR); BILIRUBIN,URINE Negative (NEGATIVE); COLOR,URINE Yellow (YELLOW); GLUCOSE, URINE (UA) Negative (NEGATIVE); KETONES,URINE Negative (NEGATIVE); LEUKOCYTE ESTERASE ,URINE Trace (NEGATIVE); NITRATE,URINE Negative (NEGATIVE); OCCULT BLOOD,URINE Negative (NEGATIVE); PROTEIN,URINE POS 2+ mg/dL (NEGATIVE)
[2020-04-28 23:37] LABS: BACTERIA,URINE Rare /HPF (None Seen); RBC,URINE None Seen /HPF (0-1); SQUAMOUS EPITHELIAL CELL,UR Few /HPF (0-2); WBC,URINE 0-1 /HPF (0-1)
[2020-04-28 23:44] LABS: YEAST,URINE BUDDING Rare /HPF (None Seen)
[2020-04-28 23:45] LABS: URIC ACID CRYSTALS,URINE Few /LPF (None Seen)
--- NOTE | 2020-04-28 23:45 | NUR ---
Urine collected for UA/C&S and sent to lab. Right groin wound vac in place and functioning. Patient denied pain and discomfort during this assessment. Will continue to monitor.
[2020-04-29] VITALS (7 sets, daily range): BP systolic 124–157; BP diastolic 54–86
[2020-04-29] MEDS: ZOSYN 3.375GM+NS 50ML 50 ML IV SCH ×3 (05:00→21:39)
[2020-04-29] MEDS: INSULIN HUMULIN R 100 UNIT/ML 3ML SQ SCH ×4 (07:30→21:00)
[2020-04-29] MEDS: FAMOTIDINE 20MG TAB 20 MG TAB PO SCH (10:05)
[2020-04-29] MEDS: LISINOPRIL 10 MG TABLET PO SCH ×2 (10:06→21:39)
[2020-04-29] MEDS: POLYETHYLENE GLYCOL 3350 17 GM POWD.PACK PO SCH (10:06)
[2020-04-29] MEDS: METOPROLOL TARTRATE 25 MG TAB PO SCH ×2 (10:06→21:40)
[2020-04-29] MEDS: FUROSEMIDE 20 MG TABLET PO SCH (10:06)
[2020-04-29] MEDS: ASPIRIN 81MG TAB.CHEW PO SCH (10:06)
[2020-04-29] MEDS: HONEY 1 APPL/ML TUBE TP SCH (10:08)
[2020-04-29] MEDS: ENOXAPARIN SODIUM 30 MG/0.3 ML SQ SCH (10:08)
[2020-04-29] MEDS: INSULIN GLARGINE 100 UNITS/ML 10 ML VIAL SQ SCH (10:25)
--- NOTE | 2020-04-29 16:24 | NUR ---
RD NOTE pt is currently on a heart healthy diet consuming 75% of meals. Pt was found to have a rt groin wound infection with pseudomonas aeruginosa; pt currently has a rt groin wound vac and is on antibiotics. Pt's renal labs have shown improvement. BUN 21, GFR 40, CREAT 1.4 Pt has had multiple hyperglycemic lab values. Recent labs show a blood glucose of 141. RD recommendation: add a 60 gm CC modifier to current diet order. Will continue to monitor PO intake and tolerance. Contact dietary if any nutritional concerns arise. Thank you Addendum: 04/29/20 at [address] Amended: Links added.
[2020-04-30 04:15] VITALS: BP 137/64
[2020-04-30] MEDS: ZOSYN 3.375GM+NS 50ML 50 ML IV SCH ×3 (05:05→20:26)
[2020-04-30 06:34] LABS: BILIRUBIN,TOTAL 0.4 mg/dL (0.2-1.0); CREATININE 1.5 mg/dL (0.5-1.5); POTASSIUM 4.2 mmol/L (3.5-5.1); TOTAL PROTEIN, SERUM 7.3 g/dL (6.0-8.3)
[2020-04-30 06:37] LABS: BASOPHILS % (AUTO) 0.3 % (0.0-5.0); EOSINOPHILS % (AUTO) 1.2 % (0.0-8.0); HEMATOCRIT 26.8 % (36-48); LYMPHOCYTES % (AUTO) 13.6 % (21.0-51.0); MEAN CORPUSCULAR HEMOGLOBIN 30.2 pg (27.0-33.0); MEAN CORPUSCULAR HGB CONC 30.2 g/dL (32.0-36.0); MONOCYTES % (AUTO) 5.1 % (3.0-13.0); PLATELET COUNT (AUTO) 214 K/uL (130-400); RED BLOOD CELL COUNT(AUTO) 2.68 MIL/uL (4.00-5.50); RED CELL DISTRIBUTION WIDTH 15.2 % (11.0-15.5); WHITE BLOOD COUNT (AUTO) 9.9 K/uL (4.8-10.8)
[2020-04-30] MEDS: INSULIN HUMULIN R 100 UNIT/ML 3ML SQ SCH ×4 (07:30→20:28)
[2020-04-30 07:47] VITALS: BP 137/56
[2020-04-30] MEDS: HONEY 1 APPL/ML TUBE TP SCH (09:00)
[2020-04-30] MEDS: ASPIRIN 81MG TAB.CHEW PO SCH (11:48)
[2020-04-30] MEDS: FUROSEMIDE 20 MG TABLET PO SCH (11:48)
[2020-04-30] MEDS: LISINOPRIL 10 MG TABLET PO SCH ×2 (11:49→20:27)
[2020-04-30] MEDS: FAMOTIDINE 20MG TAB 20 MG TAB PO SCH (11:49)
[2020-04-30] MEDS: POLYETHYLENE GLYCOL 3350 17 GM POWD.PACK PO SCH (11:49)
[2020-04-30] MEDS: METOPROLOL TARTRATE 25 MG TAB PO SCH ×2 (11:49→20:27)
[2020-04-30] MEDS: ENOXAPARIN SODIUM 30 MG/0.3 ML SQ SCH (11:50)
[2020-04-30 11:51] VITALS: BP 124/57
[2020-04-30] MEDS: INSULIN GLARGINE 100 UNITS/ML 10 ML VIAL SQ SCH (11:56)
[2020-04-30] MEDS ORDERED: SODIUM BICARB 8.4% 50ML SYRINGE IVP ONE (13:59)
[2020-04-30] MEDS ORDERED: PHENYLEPHRINE HCL 10 MG/ML 1ML VIAL IV ONE (13:59)
[2020-04-30] MEDS ORDERED: HEPARIN SODIUM 1000UNIT/ML 10ML VIAL IV ONE (13:59)
[2020-04-30] MEDS ORDERED: AMINOCAPROIC ACID 250 MG/ML 20 ML VIAL IV ONE (13:59)
[2020-04-30] MEDS ORDERED: MANNITOL 25% 50ML VIAL IV ONE (13:59)
[2020-04-30] MEDS ORDERED: MAGNESIUM SULFATE 1 GM/2 ML VIAL IM ONE (13:59)
[2020-04-30] MEDS ORDERED: CALCIUM CHLORIDE 100 MG/ML 10 ML SYG IVP ONE (13:59)
[2020-04-30 15:21] VITALS: BP 133/61
--- NOTE | 2020-04-30 16:36 | NUR ---
CM NOTE/[facility] MET WITH PATIENT IN ROOM TO INFORM HER OF NEED FOR WOUND VAC AT HOME, PT UNINSURED. ADELE COMPLETED FOR [facility] WOUND VAC. PENDING FORMS SIGNED BY DR. TWAN ALVAREZ MD AWARE OF FORMS FLAGGED IN CHART FOR HIS USE. MURALI WITH DR. REES AWARE OF DC PLAN. PER DR. MENDIETA, PATIENTS ABT WILL BE CONVERTED TO PO ONCE DISCHARGED FROM HOSPITAL. WILL HAVE [facility] FORMS SIGNED THEN FAX TO [facility] TO FOLLOW UP. PRIMARY NURSE, ENRICO LINO, AWARE OF PENDING FORMS FOR SIGNATURE SIGNED IN CHART. [facility] FORM FOR [facility] COMPLETED, WILL BE INCLUDED IN CLINICALS WHEN FAXED.
[2020-04-30 20:29] VITALS: BP 130/57
[2020-04-30 23:26] VITALS: BP 116/61
[2020-05-01 03:22] VITALS: BP 149/60
[2020-05-01] MEDS: ZOSYN 3.375GM+NS 50ML 50 ML IV SCH ×3 (05:48→20:38)
[2020-05-01] MEDS: INSULIN HUMULIN R 100 UNIT/ML 3ML SQ SCH ×4 (05:53→20:42)
[2020-05-01 07:27] VITALS: BP 144/67
[2020-05-01] MEDS: INSULIN GLARGINE 100 UNITS/ML 10 ML VIAL SQ SCH (08:26)
[2020-05-01] MEDS: FUROSEMIDE 20 MG TABLET PO SCH (08:27)
[2020-05-01] MEDS: LISINOPRIL 10 MG TABLET PO SCH ×2 (08:27→20:38)
[2020-05-01] MEDS: POLYETHYLENE GLYCOL 3350 17 GM POWD.PACK PO SCH (08:28)
[2020-05-01] MEDS: FAMOTIDINE 20MG TAB 20 MG TAB PO SCH (08:28)
[2020-05-01] MEDS: METOPROLOL TARTRATE 25 MG TAB PO SCH ×2 (08:28→20:38)
[2020-05-01] MEDS: ASPIRIN 81MG TAB.CHEW PO SCH (08:28)
[2020-05-01] MEDS: ENOXAPARIN SODIUM 30 MG/0.3 ML SQ SCH (08:28)
[2020-05-01] MEDS: HONEY 1 APPL/ML TUBE TP SCH (09:00)
[2020-05-01 11:22] VITALS: BP 144/78
--- NOTE | 2020-05-01 11:30 | NUR ---
CM NOTE/I ORDER FAXED DR. Bairon ALVAREZ SIGNED FORMS FOR [facility], CLINICAL AND ORDER FOR SERVICE FAXED TO [facility] AT . CALLED . KAYLIN FROM [facility] INFORMED ME ORDER FOR SERVICE WAS UNDER PROCESS AND WOULD BE DELIVERED IN HOSPITAL ROOM. CM TO FOLLOW UP.
[2020-05-01 16:30] VITALS: BP 160/77
[2020-05-01 19:55] VITALS: BP 162/95
[2020-05-01] MEDS ORDERED: TEMAZEPAM 7.5 MG CAPSULE PO ONE ×2 (23:15→23:18)
[2020-05-01 23:38] VITALS: BP 175/81
[2020-05-02 03:44] VITALS: BP 166/71
[2020-05-02] MEDS: ZOSYN 3.375GM+NS 50ML 50 ML IV SCH ×3 (05:22→20:53)
[2020-05-02] MEDS: INSULIN HUMULIN R 100 UNIT/ML 3ML SQ SCH ×4 (06:09→21:09)
[2020-05-02 07:00] VITALS: BP 146/68
[2020-05-02] MEDS: FAMOTIDINE 20MG TAB 20 MG TAB PO SCH (08:36)
[2020-05-02] MEDS: ASPIRIN 81MG TAB.CHEW PO SCH (08:36)
[2020-05-02] MEDS: POLYETHYLENE GLYCOL 3350 17 GM POWD.PACK PO SCH (08:36)
[2020-05-02] MEDS: FUROSEMIDE 20 MG TABLET PO SCH (08:36)
[2020-05-02] MEDS: LISINOPRIL 10 MG TABLET PO SCH ×2 (08:36→20:56)
[2020-05-02] MEDS: METOPROLOL TARTRATE 25 MG TAB PO SCH ×2 (08:36→20:57)
[2020-05-02] MEDS: ENOXAPARIN SODIUM 30 MG/0.3 ML SQ SCH (08:37)
[2020-05-02] MEDS: INSULIN GLARGINE 100 UNITS/ML 10 ML VIAL SQ SCH (08:43)
[2020-05-02] MEDS: HONEY 1 APPL/ML TUBE TP SCH (09:00)
[2020-05-02 10:04] LABS: CREATININE 1.3 mg/dL (0.5-1.5); MAGNESIUM 2.1 mg/dL (1.80-2.40); POTASSIUM 3.9 mmol/L (3.5-5.1)
[2020-05-02 11:00] VITALS: BP 166/71
--- NOTE | 2020-05-02 11:17 | NUR ---
RD FOLLOW UP Pt is currently on a heart healthy diet with a 60 gm CC and consuming an average of 75% of meals as per pt. At time of visit, pt was resting comfortably in chair. Pt denies any n/v/c/d. RD recommendation: continue current diet order, monitor PO intake, if intake falls <75% consider Glucerna BID. RD will continue to follow. Contact Dietary with any nutritional concerns. Last bowel movement: 05/02/20 LABS: BG 186, RBC 2.6, HGB 8.1, HCT 26.8, MCV 100, CREAT 1.3, GFR 44, BUN 14, ALB 2.0, MG 2.10, CA 8.2 Addendum: 05/02/20 at [address] Amended: Links added.
--- NOTE | 2020-05-02 12:47 | NUR ---
CM NOTE/[facility] PEND DELIVERY PER VIVIAN AT [facility], WOUND VAC APPROVED AND PENDING DELIVERY TO ROOM. PRIMARY NURSE, GILL LINO, MADE AWARE. RX IN CHART FOR PO ABT AT HOME. PENDING [facility] APPOINTMENT, NURSING AWARE.
[2020-05-02 16:00] VITALS: BP 188/79
[2020-05-02] MEDS ORDERED: HYDRALAZINE HCL 20 MG/ML VIAL IV PRN (17:00)
[2020-05-02 20:00] VITALS: BP 168/72
[2020-05-03] VITALS (7 sets, daily range): BP systolic 145–170; BP diastolic 63–91
[2020-05-03] MEDS ORDERED: TEMAZEPAM 7.5 MG CAPSULE PO ONE ×2 (00:11)
[2020-05-03] MEDS: ZOSYN 3.375GM+NS 50ML 50 ML IV SCH ×3 (04:29→20:32)
[2020-05-03] MEDS: INSULIN HUMULIN R 100 UNIT/ML 3ML SQ SCH ×4 (06:20→20:25)
[2020-05-03 06:32] LABS: CREATININE 1.2 mg/dL (0.5-1.5)
[2020-05-03] MEDS: ASPIRIN 81MG TAB.CHEW PO SCH (08:11)
[2020-05-03] MEDS: FAMOTIDINE 20MG TAB 20 MG TAB PO SCH (08:12)
[2020-05-03] MEDS: FUROSEMIDE 20 MG TABLET PO SCH (08:12)
[2020-05-03] MEDS: ENOXAPARIN SODIUM 30 MG/0.3 ML SQ SCH (08:12)
[2020-05-03] MEDS: METOPROLOL TARTRATE 25 MG TAB PO SCH ×2 (08:13→20:32)
[2020-05-03] MEDS: LISINOPRIL 10 MG TABLET PO SCH ×2 (08:13→20:32)
[2020-05-03] MEDS: POLYETHYLENE GLYCOL 3350 17 GM POWD.PACK PO SCH (08:13)
[2020-05-03] MEDS: INSULIN GLARGINE 100 UNITS/ML 10 ML VIAL SQ SCH (08:16)
[2020-05-03] MEDS: HONEY 1 APPL/ML TUBE TP SCH (09:00)
[2020-05-03] MEDS: AMLODIPINE BESYLATE 5 MG TAB PO SCH (11:34)
--- NOTE | 2020-05-03 16:42 | NUR ---
cm note spoke to pt and pt has received wound vac supplies from [facility] in hospital room. primary nurse made aware. call made to Jesus valencia to confirm can be dc today if wound vacand supplies delivered, still pending [facility] appt, [facility] dir. spoke to Marti walters of [facility], and orders obtained. pt is to call on tuesday to obtain appt for tuesday05/06/20, updated pt on above and verbalizes understanding.
[2020-05-04 04:24] VITALS: BP 140/65
[2020-05-04] MEDS: ZOSYN 3.375GM+NS 50ML 50 ML IV SCH (04:24)
[2020-05-04 06:01] LABS: HEMATOCRIT 24.8 % (36-48)
[2020-05-04] MEDS: INSULIN HUMULIN R 100 UNIT/ML 3ML SQ SCH ×3 (06:15→16:30)
[2020-05-04 07:59] VITALS: BP 147/66
[2020-05-04] MEDS: METOPROLOL TARTRATE 25 MG TAB PO SCH (08:49)
[2020-05-04] MEDS: FUROSEMIDE 20 MG TABLET PO SCH (08:49)
[2020-05-04] MEDS: LISINOPRIL 10 MG TABLET PO SCH (08:49)
[2020-05-04] MEDS: FAMOTIDINE 20MG TAB 20 MG TAB PO SCH (08:49)
[2020-05-04] MEDS: ENOXAPARIN SODIUM 30 MG/0.3 ML SQ SCH (08:50)
[2020-05-04] MEDS: POLYETHYLENE GLYCOL 3350 17 GM POWD.PACK PO SCH (08:50)
[2020-05-04] MEDS: ASPIRIN 81MG TAB.CHEW PO SCH (08:50)
[2020-05-04] MEDS: INSULIN GLARGINE 100 UNITS/ML 10 ML VIAL SQ SCH (08:51)
[2020-05-04] MEDS: HONEY 1 APPL/ML TUBE TP SCH (09:00)
[2020-05-04] MEDS: AMLODIPINE BESYLATE 5 MG TAB PO SCH (11:12)
[2020-05-04 11:29] VITALS: BP 142/58
[2020-05-04] MEDS ORDERED: AMLODIPINE BESYLATE 5 MG TAB PO SCH (12:00)
[2020-05-04 15:30] VITALS: BP 140/57
--- NOTE | 2020-05-04 18:30 | NUR ---
DISCHARGE INSTRUCTIONS GIVEN TO PATIENT AND SON AT THE BEDSIDE. PATIENT REQUESTED DISCHARGE INSTRUCTIONS BE PRINTED IN [place] SO HER SON COULD UNDERSTAND. MADE PATIENT AND SON AWARE OF THE FOLLOWING: NEED TO SCHEDULE APPOINTMENT WITH [facility] INSTRUCTED TO CALL FIRST THING TOMORROW MORNING. ALSO MADE AWARE NEEDS TO SCHEDULE APPOINTMENT WITH DR. CHI AND DR. REES IN 1-2 WEEKS WELL PCP IN 2-3 DAYS. HANDS ON BEDSIDE WOUND VAC EDUCATION PROVIDED TO SON AND PATIENT. INSTRUCTED ON WOUND VAC MANAGEMENT, LEAK MANAGEMENT, CANISTER CHANGE, AND CHARGING WOUND VAC. PATIENT AND SON VOICED UNDERSTANDING OF IMPORTANCE OF STRICT WOUND VAC MANAGEMENT. EDUCATED ON SIGNS AND SYMPTOMS OF INFECTION. PATIENT AT THIS TIME DENIES ANY PAIN. HOSPITAL WOUND VAC DISCONTINUED AND PATIENT WAS CONNECTED TO PORTABLE [facility] WOUND VAC SETTING CONTINUOUS AT 125. WOUND VAC FUCNTIONING PROPERLY, DRESSING INTACT. INSTRUCTED ON ALL NEW PRESCRIPTIONS WELL DOSAGE CHANGES TO LASIX AND METOPROLOL. IV AND TELE REMOVED. SON TOOK ALL WOUND VAC SUPPLIES AND INSTRUCTED TO TAKE A DRESSING AND CANISTER TO EACH APPOINTMENT WITH [facility]
== END 2020-05-04 18:30 | disposition home or self-care (01) | DRG 216 ==
LOC: EDH 06:40 → EDHIP 11:21 → DAHIP 15:21 → 4DH 17:43 → PAH.CVR 04-18 14:02 → 2DH 04-19 06:24 → 4BH 04-20 15:07
PROVIDERS: ADMIT Hospitalist; ATTEND Hospitalist
PROC: 4A023N8 Measurement of Cardiac Sampling and Pressure, Bilateral, Percutaneous Approach (ICD-10-PCS; 2020-04-15)
PROC: B2111ZZ Fluoroscopy of Multiple Coronary Arteries using Low Osmolar Contrast (ICD-10-PCS; 2020-04-15)
PROC: B2151ZZ Fluoroscopy of Left Heart using Low Osmolar Contrast (ICD-10-PCS; 2020-04-15)
PROC: B41F1ZZ Fluoroscopy of Right Lower Extremity Arteries using Low Osmolar Contrast (ICD-10-PCS; 2020-04-15)
PROC: B245ZZ4 Ultrasonography of Left Heart, Transesophageal (ICD-10-PCS; 2020-04-18)
PROC: 5A1221Z Performance of Cardiac Output, Continuous (ICD-10-PCS; 2020-04-18)
PROC: 05HY33Z Insertion of Infusion Device into Upper Vein, Percutaneous Approach (ICD-10-PCS; 2020-04-18)
PROC: 02RF08Z Replacement of Aortic Valve with Zooplastic Tissue, Open Approach (ICD-10-PCS; principal; 2020-04-18 12:03)
DX: I35.0 Nonrheumatic aortic (valve) stenosis (principal); J96.91 Respiratory failure, unspecified with hypoxia; A41.52 Sepsis due to Pseudomonas; N17.9 Acute kidney failure, unspecified; J81.1 Chronic pulmonary edema; I50.42 Chronic combined systolic (congestive) and diastolic (congestive) heart failure; I42.9 Cardiomyopathy, unspecified; I13.0 Hypertensive heart and chronic kidney disease with heart failure and stage 1 through stage 4 chronic kidney disease, or unspecified chronic kidney disease; L03.314 Cellulitis of groin; T81.31XA Disruption of external operation (surgical) wound, not elsewhere classified, initial encounter; T81.41XA Infection following a procedure, superficial incisional surgical site, initial encounter; L02.214 Cutaneous abscess of groin; J98.11 Atelectasis; I89.8 Other specified noninfective disorders of lymphatic vessels and lymph nodes; D69.6 Thrombocytopenia, unspecified; E11.22 Type 2 diabetes mellitus with diabetic chronic kidney disease; E78.5 Hyperlipidemia, unspecified; E78.00 Pure hypercholesterolemia, unspecified; E66.9 Obesity, unspecified; I25.10 Atherosclerotic heart disease of native coronary artery without angina pectoris; N18.30 Chronic kidney disease, stage 3 unspecified; I16.0 Hypertensive urgency; Z20.828 Contact with and (suspected) exposure to other viral communicable diseases; Z90.710 Acquired absence of both cervix and uterus; Z79.899 Other long term (current) drug therapy; Z79.84 Long term (current) use of oral hypoglycemic drugs; Z79.82 Long term (current) use of aspirin; Z79.02 Long term (current) use of antithrombotics/antiplatelets; Z68.21 Body mass index [BMI] 21.0-21.9, adult
CPT/HCPCS: 36415; 70450; 71045; 76882; 80048; 80053; 81001; 82330; 82435; 82550; 82570; 82803; 82947; 82948; 83036; 83540; 83550; 83605; 83735; 83880; 84100; 84132; 84145; 84156; 84295; 84484; 85014; 85018; 85025; 85027; 85347; 85610; 85730; 86850; 86900; 86901; 86923; 87040; 87070; 87076; 87077; 87088; 87186; 87426; 88305; 88311; 93005; 93308; 93313; 93318; 93356; 93460; 93880; 94002; 94003; 94010; 94150; 97039; 99156; 99157; A4344; A7048; C1760; C1769; C1893; C1894; G0378; J0171; J0282; J0360; J0583; J0610; J0690; J1644; J1650; J1756; J1815; J1940; J2001; J2150; J2250; J2370; J2405; J2543; J2704; J2720; J2795; J3010; J3475; J3480; J3490; J7030; J7040; P9045; Q9967; U0003

== ENCOUNTER → 2020-05-06 | Outpatient (CLI) | payer OTHER ==
[~2020-05-06] MED LIST: AMLO-257 PO; LISI-613 PO; METF-444 PO
== END | disposition home or self-care (01) ==
LOC: WHH 13:54
PROVIDERS: ATTEND Family Medicine
DX: T81.31XA Disruption of external operation (surgical) wound, not elsewhere classified, initial encounter (principal); E11.22 Type 2 diabetes mellitus with diabetic chronic kidney disease; I12.9 Hypertensive chronic kidney disease with stage 1 through stage 4 chronic kidney disease, or unspecified chronic kidney disease; N18.30 Chronic kidney disease, stage 3 unspecified; I50.23 Acute on chronic systolic (congestive) heart failure; E78.5 Hyperlipidemia, unspecified; I35.0 Nonrheumatic aortic (valve) stenosis; F41.9 Anxiety disorder, unspecified; F32.9 Major depressive disorder, single episode, unspecified; Z90.710 Acquired absence of both cervix and uterus; Y83.8 Other surgical procedures as the cause of abnormal reaction of the patient, or of later complication, without mention of misadventure at the time of the procedure; Y92.238 Other place in hospital as the place of occurrence of the external cause
CPT/HCPCS: 97605; 99215

== ENCOUNTER → 2020-05-09 | Outpatient (CLI) | payer OTHER ==
[~2020-05-09] MED LIST changes: +LIDOCAINE HCL 2% JELLY 5 ML TP ONE
== END | disposition home or self-care (01) ==
LOC: WHH 09:30
PROVIDERS: ATTEND Family Medicine
DX: T81.31XD Disruption of external operation (surgical) wound, not elsewhere classified, subsequent encounter (principal); E11.22 Type 2 diabetes mellitus with diabetic chronic kidney disease; I12.9 Hypertensive chronic kidney disease with stage 1 through stage 4 chronic kidney disease, or unspecified chronic kidney disease; N18.30 Chronic kidney disease, stage 3 unspecified; I50.23 Acute on chronic systolic (congestive) heart failure; E78.5 Hyperlipidemia, unspecified; I35.0 Nonrheumatic aortic (valve) stenosis; F41.9 Anxiety disorder, unspecified; F32.9 Major depressive disorder, single episode, unspecified; Z90.710 Acquired absence of both cervix and uterus; Y83.8 Other surgical procedures as the cause of abnormal reaction of the patient, or of later complication, without mention of misadventure at the time of the procedure
CPT/HCPCS: 97605; 99214

== ENCOUNTER → 2020-05-13 | Outpatient (CLI) | payer OTHER | END | disposition home or self-care (01) | LOC: WHH 08:30 | PROVIDERS: ATTEND Family Medicine | DX: T81.31XD Disruption of external operation (surgical) wound, not elsewhere classified, subsequent encounter (principal); E11.22 Type 2 diabetes mellitus with diabetic chronic kidney disease; I12.9 Hypertensive chronic kidney disease with stage 1 through stage 4 chronic kidney disease, or unspecified chronic kidney disease; N18.30 Chronic kidney disease, stage 3 unspecified; I50.23 Acute on chronic systolic (congestive) heart failure; E78.5 Hyperlipidemia, unspecified; I35.0 Nonrheumatic aortic (valve) stenosis; F41.9 Anxiety disorder, unspecified; F32.9 Major depressive disorder, single episode, unspecified; Z90.710 Acquired absence of both cervix and uterus; Y83.8 Other surgical procedures as the cause of abnormal reaction of the patient, or of later complication, without mention of misadventure at the time of the procedure | CPT/HCPCS: 97605; 99211 ==

== ENCOUNTER → 2020-05-16 | Outpatient (CLI) | payer OTHER ==
[~2020-05-16] MED LIST changes: -LIDOCAINE HCL 2% JELLY 5 ML TP ONE
== END | disposition home or self-care (01) ==
LOC: WHH 11:00
PROVIDERS: ATTEND Family Medicine
DX: T81.31XD Disruption of external operation (surgical) wound, not elsewhere classified, subsequent encounter (principal); E11.22 Type 2 diabetes mellitus with diabetic chronic kidney disease; I12.9 Hypertensive chronic kidney disease with stage 1 through stage 4 chronic kidney disease, or unspecified chronic kidney disease; N18.30 Chronic kidney disease, stage 3 unspecified; I50.23 Acute on chronic systolic (congestive) heart failure; E78.5 Hyperlipidemia, unspecified; I35.0 Nonrheumatic aortic (valve) stenosis; F41.9 Anxiety disorder, unspecified; F32.9 Major depressive disorder, single episode, unspecified; Z90.710 Acquired absence of both cervix and uterus; Y83.8 Other surgical procedures as the cause of abnormal reaction of the patient, or of later complication, without mention of misadventure at the time of the procedure
CPT/HCPCS: 97605; 99211

== ENCOUNTER → 2020-05-20 | Outpatient (CLI) | payer OTHER | END | disposition home or self-care (01) | LOC: WHH 11:00 | PROVIDERS: ATTEND Family Medicine | DX: T81.31XD Disruption of external operation (surgical) wound, not elsewhere classified, subsequent encounter (principal); E11.22 Type 2 diabetes mellitus with diabetic chronic kidney disease; I12.9 Hypertensive chronic kidney disease with stage 1 through stage 4 chronic kidney disease, or unspecified chronic kidney disease; N18.30 Chronic kidney disease, stage 3 unspecified; I50.23 Acute on chronic systolic (congestive) heart failure; E78.5 Hyperlipidemia, unspecified; I35.0 Nonrheumatic aortic (valve) stenosis; F41.9 Anxiety disorder, unspecified; F32.9 Major depressive disorder, single episode, unspecified; Z90.710 Acquired absence of both cervix and uterus; Y83.8 Other surgical procedures as the cause of abnormal reaction of the patient, or of later complication, without mention of misadventure at the time of the procedure | CPT/HCPCS: 97605; 99211 ==

== ENCOUNTER → 2020-05-23 | Outpatient (CLI) | payer OTHER ==
[~2020-05-23] MED LIST changes: +LIDOCAINE HCL 2% JELLY 5 ML TP ONE
== END | disposition home or self-care (01) ==
LOC: WHH 10:45
PROVIDERS: ATTEND Family Medicine
DX: T81.31XD Disruption of external operation (surgical) wound, not elsewhere classified, subsequent encounter (principal); E11.22 Type 2 diabetes mellitus with diabetic chronic kidney disease; I12.9 Hypertensive chronic kidney disease with stage 1 through stage 4 chronic kidney disease, or unspecified chronic kidney disease; N18.30 Chronic kidney disease, stage 3 unspecified; I50.23 Acute on chronic systolic (congestive) heart failure; E78.5 Hyperlipidemia, unspecified; I35.0 Nonrheumatic aortic (valve) stenosis; F41.9 Anxiety disorder, unspecified; F32.9 Major depressive disorder, single episode, unspecified; Z90.710 Acquired absence of both cervix and uterus; Y83.8 Other surgical procedures as the cause of abnormal reaction of the patient, or of later complication, without mention of misadventure at the time of the procedure
CPT/HCPCS: 11042; 97605

== ENCOUNTER → 2020-05-27 | Outpatient (CLI) | payer OTHER ==
[~2020-05-27] MED LIST changes: -LIDOCAINE HCL 2% JELLY 5 ML TP ONE
== END | disposition home or self-care (01) ==
LOC: WHH 10:45
PROVIDERS: ATTEND Family Medicine
DX: T81.31XD Disruption of external operation (surgical) wound, not elsewhere classified, subsequent encounter (principal); E11.22 Type 2 diabetes mellitus with diabetic chronic kidney disease; I12.9 Hypertensive chronic kidney disease with stage 1 through stage 4 chronic kidney disease, or unspecified chronic kidney disease; N18.30 Chronic kidney disease, stage 3 unspecified; I50.23 Acute on chronic systolic (congestive) heart failure; E78.5 Hyperlipidemia, unspecified; I35.0 Nonrheumatic aortic (valve) stenosis; F41.9 Anxiety disorder, unspecified; F32.9 Major depressive disorder, single episode, unspecified; Z90.710 Acquired absence of both cervix and uterus; Y83.8 Other surgical procedures as the cause of abnormal reaction of the patient, or of later complication, without mention of misadventure at the time of the procedure
CPT/HCPCS: 97605; 99211

== ENCOUNTER → 2020-05-30 | Outpatient (CLI) | payer OTHER | END | disposition home or self-care (01) | LOC: WHH 10:45 | PROVIDERS: ATTEND Family Medicine | DX: T81.31XD Disruption of external operation (surgical) wound, not elsewhere classified, subsequent encounter (principal); E11.22 Type 2 diabetes mellitus with diabetic chronic kidney disease; I12.9 Hypertensive chronic kidney disease with stage 1 through stage 4 chronic kidney disease, or unspecified chronic kidney disease; N18.30 Chronic kidney disease, stage 3 unspecified; I50.23 Acute on chronic systolic (congestive) heart failure; E78.5 Hyperlipidemia, unspecified; I35.0 Nonrheumatic aortic (valve) stenosis; F41.9 Anxiety disorder, unspecified; F32.9 Major depressive disorder, single episode, unspecified; Z90.710 Acquired absence of both cervix and uterus; Y83.8 Other surgical procedures as the cause of abnormal reaction of the patient, or of later complication, without mention of misadventure at the time of the procedure | CPT/HCPCS: 97605; 99214 ==

== ENCOUNTER → 2020-06-06 | Outpatient (CLI) | payer OTHER | END | disposition home or self-care (01) | LOC: WHH 10:30 | PROVIDERS: ATTEND Family Medicine | DX: T81.31XD Disruption of external operation (surgical) wound, not elsewhere classified, subsequent encounter (principal); E11.22 Type 2 diabetes mellitus with diabetic chronic kidney disease; I12.9 Hypertensive chronic kidney disease with stage 1 through stage 4 chronic kidney disease, or unspecified chronic kidney disease; N18.30 Chronic kidney disease, stage 3 unspecified; I50.23 Acute on chronic systolic (congestive) heart failure; E78.5 Hyperlipidemia, unspecified; I25.10 Atherosclerotic heart disease of native coronary artery without angina pectoris; E78.00 Pure hypercholesterolemia, unspecified; E66.9 Obesity, unspecified; I35.0 Nonrheumatic aortic (valve) stenosis; F41.9 Anxiety disorder, unspecified; F32.9 Major depressive disorder, single episode, unspecified; Z79.82 Long term (current) use of aspirin; Z79.02 Long term (current) use of antithrombotics/antiplatelets; Z79.899 Other long term (current) drug therapy; Z79.84 Long term (current) use of oral hypoglycemic drugs; Z68.32 Body mass index [BMI] 32.0-32.9, adult; Z90.710 Acquired absence of both cervix and uterus; Y83.8 Other surgical procedures as the cause of abnormal reaction of the patient, or of later complication, without mention of misadventure at the time of the procedure | CPT/HCPCS: 97605; 99214 ==

== ENCOUNTER → 2020-06-11 | Outpatient (CLI) | payer OTHER | END | disposition home or self-care (01) | LOC: WHH 10:30 | PROVIDERS: ATTEND Family Medicine | DX: T81.31XD Disruption of external operation (surgical) wound, not elsewhere classified, subsequent encounter (principal); E11.22 Type 2 diabetes mellitus with diabetic chronic kidney disease; I12.9 Hypertensive chronic kidney disease with stage 1 through stage 4 chronic kidney disease, or unspecified chronic kidney disease; N18.30 Chronic kidney disease, stage 3 unspecified; I50.23 Acute on chronic systolic (congestive) heart failure; E78.5 Hyperlipidemia, unspecified; I25.10 Atherosclerotic heart disease of native coronary artery without angina pectoris; E78.00 Pure hypercholesterolemia, unspecified; E66.9 Obesity, unspecified; I35.0 Nonrheumatic aortic (valve) stenosis; F41.9 Anxiety disorder, unspecified; F32.9 Major depressive disorder, single episode, unspecified; Z79.82 Long term (current) use of aspirin; Z79.02 Long term (current) use of antithrombotics/antiplatelets; Z79.899 Other long term (current) drug therapy; Z79.84 Long term (current) use of oral hypoglycemic drugs; Z68.32 Body mass index [BMI] 32.0-32.9, adult; Z90.710 Acquired absence of both cervix and uterus; Y83.8 Other surgical procedures as the cause of abnormal reaction of the patient, or of later complication, without mention of misadventure at the time of the procedure | CPT/HCPCS: 97605; 99211 ==

== ENCOUNTER → 2020-06-27 | Outpatient (CLI) | payer OTHER | END | disposition home or self-care (01) | LOC: WHH 09:15 | PROVIDERS: ATTEND Family Medicine | DX: T81.31XD Disruption of external operation (surgical) wound, not elsewhere classified, subsequent encounter (principal); E11.22 Type 2 diabetes mellitus with diabetic chronic kidney disease; I12.9 Hypertensive chronic kidney disease with stage 1 through stage 4 chronic kidney disease, or unspecified chronic kidney disease; N18.30 Chronic kidney disease, stage 3 unspecified; I50.23 Acute on chronic systolic (congestive) heart failure; E78.5 Hyperlipidemia, unspecified; I25.10 Atherosclerotic heart disease of native coronary artery without angina pectoris; E78.00 Pure hypercholesterolemia, unspecified; E66.9 Obesity, unspecified; I35.0 Nonrheumatic aortic (valve) stenosis; F41.9 Anxiety disorder, unspecified; F32.9 Major depressive disorder, single episode, unspecified; Z79.82 Long term (current) use of aspirin; Z79.02 Long term (current) use of antithrombotics/antiplatelets; Z79.899 Other long term (current) drug therapy; Z68.32 Body mass index [BMI] 32.0-32.9, adult; Z90.710 Acquired absence of both cervix and uterus; Y83.8 Other surgical procedures as the cause of abnormal reaction of the patient, or of later complication, without mention of misadventure at the time of the procedure | CPT/HCPCS: 97605; 99214 ==

== ENCOUNTER → 2020-07-01 | Outpatient (CLI) | payer OTHER | END | disposition home or self-care (01) | LOC: WHH 09:15 | PROVIDERS: ATTEND Family Medicine | DX: T81.89XD Other complications of procedures, not elsewhere classified, subsequent encounter (principal); E11.22 Type 2 diabetes mellitus with diabetic chronic kidney disease; I12.9 Hypertensive chronic kidney disease with stage 1 through stage 4 chronic kidney disease, or unspecified chronic kidney disease; N18.30 Chronic kidney disease, stage 3 unspecified; I50.23 Acute on chronic systolic (congestive) heart failure; E78.5 Hyperlipidemia, unspecified; I25.10 Atherosclerotic heart disease of native coronary artery without angina pectoris; E78.00 Pure hypercholesterolemia, unspecified; E66.9 Obesity, unspecified; I35.0 Nonrheumatic aortic (valve) stenosis; F41.9 Anxiety disorder, unspecified; F32.9 Major depressive disorder, single episode, unspecified; Z79.82 Long term (current) use of aspirin; Z79.02 Long term (current) use of antithrombotics/antiplatelets; Z79.899 Other long term (current) drug therapy; Z68.32 Body mass index [BMI] 32.0-32.9, adult; Z90.710 Acquired absence of both cervix and uterus; Y83.8 Other surgical procedures as the cause of abnormal reaction of the patient, or of later complication, without mention of misadventure at the time of the procedure | CPT/HCPCS: 97605; 99211 ==

== ENCOUNTER → 2020-07-04 | Outpatient (CLI) | payer OTHER ==
[~2020-07-04] MED LIST changes: +LIDOCAINE HCL 2% JELLY 5 ML TP ONE
== END | disposition home or self-care (01) ==
LOC: WHH 09:00
PROVIDERS: ATTEND Family Medicine
DX: T81.31XD Disruption of external operation (surgical) wound, not elsewhere classified, subsequent encounter (principal); E11.22 Type 2 diabetes mellitus with diabetic chronic kidney disease; I12.9 Hypertensive chronic kidney disease with stage 1 through stage 4 chronic kidney disease, or unspecified chronic kidney disease; N18.30 Chronic kidney disease, stage 3 unspecified; I50.23 Acute on chronic systolic (congestive) heart failure; E78.5 Hyperlipidemia, unspecified; I25.10 Atherosclerotic heart disease of native coronary artery without angina pectoris; E78.00 Pure hypercholesterolemia, unspecified; E66.9 Obesity, unspecified; I35.0 Nonrheumatic aortic (valve) stenosis; F41.9 Anxiety disorder, unspecified; F32.9 Major depressive disorder, single episode, unspecified; Z79.82 Long term (current) use of aspirin; Z79.02 Long term (current) use of antithrombotics/antiplatelets; Z79.899 Other long term (current) drug therapy; Z68.32 Body mass index [BMI] 32.0-32.9, adult; Z90.710 Acquired absence of both cervix and uterus; Y83.8 Other surgical procedures as the cause of abnormal reaction of the patient, or of later complication, without mention of misadventure at the time of the procedure
CPT/HCPCS: 97605; 99214

== ENCOUNTER → 2020-07-08 | Outpatient (CLI) | payer OTHER ==
[~2020-07-08] MED LIST changes: -LIDOCAINE HCL 2% JELLY 5 ML TP ONE
== END | disposition home or self-care (01) ==
LOC: WHH 09:26
PROVIDERS: ATTEND Family Medicine
DX: T81.31XD Disruption of external operation (surgical) wound, not elsewhere classified, subsequent encounter (principal); E11.22 Type 2 diabetes mellitus with diabetic chronic kidney disease; I12.9 Hypertensive chronic kidney disease with stage 1 through stage 4 chronic kidney disease, or unspecified chronic kidney disease; N18.30 Chronic kidney disease, stage 3 unspecified; I50.23 Acute on chronic systolic (congestive) heart failure; E78.5 Hyperlipidemia, unspecified; I25.10 Atherosclerotic heart disease of native coronary artery without angina pectoris; E78.00 Pure hypercholesterolemia, unspecified; E66.9 Obesity, unspecified; I35.0 Nonrheumatic aortic (valve) stenosis; F41.9 Anxiety disorder, unspecified; F32.9 Major depressive disorder, single episode, unspecified; Z79.82 Long term (current) use of aspirin; Z79.02 Long term (current) use of antithrombotics/antiplatelets; Z79.899 Other long term (current) drug therapy; Z68.32 Body mass index [BMI] 32.0-32.9, adult; Z90.710 Acquired absence of both cervix and uterus; Y83.8 Other surgical procedures as the cause of abnormal reaction of the patient, or of later complication, without mention of misadventure at the time of the procedure
CPT/HCPCS: 97605; 99211

== ENCOUNTER → 2020-07-15 | Outpatient (CLI) | payer OTHER | END | disposition home or self-care (01) | LOC: WHH 09:15 | PROVIDERS: ATTEND Family Medicine | DX: T81.31XD Disruption of external operation (surgical) wound, not elsewhere classified, subsequent encounter (principal); E11.22 Type 2 diabetes mellitus with diabetic chronic kidney disease; I12.9 Hypertensive chronic kidney disease with stage 1 through stage 4 chronic kidney disease, or unspecified chronic kidney disease; N18.30 Chronic kidney disease, stage 3 unspecified; I50.23 Acute on chronic systolic (congestive) heart failure; E78.5 Hyperlipidemia, unspecified; I25.10 Atherosclerotic heart disease of native coronary artery without angina pectoris; E78.00 Pure hypercholesterolemia, unspecified; E66.9 Obesity, unspecified; I35.0 Nonrheumatic aortic (valve) stenosis; F41.9 Anxiety disorder, unspecified; F32.9 Major depressive disorder, single episode, unspecified; Z79.82 Long term (current) use of aspirin; Z79.02 Long term (current) use of antithrombotics/antiplatelets; Z79.899 Other long term (current) drug therapy; Z68.32 Body mass index [BMI] 32.0-32.9, adult; Z90.710 Acquired absence of both cervix and uterus; Y83.8 Other surgical procedures as the cause of abnormal reaction of the patient, or of later complication, without mention of misadventure at the time of the procedure | CPT/HCPCS: 97605; 99214 ==

== ENCOUNTER → 2020-08-14 | Outpatient (CLI) | payer OTHER | END | disposition home or self-care (01) | LOC: WHH 08:30 | PROVIDERS: ATTEND Family Medicine | DX: T81.31XD Disruption of external operation (surgical) wound, not elsewhere classified, subsequent encounter (principal); E11.22 Type 2 diabetes mellitus with diabetic chronic kidney disease; I12.9 Hypertensive chronic kidney disease with stage 1 through stage 4 chronic kidney disease, or unspecified chronic kidney disease; N18.30 Chronic kidney disease, stage 3 unspecified; I50.23 Acute on chronic systolic (congestive) heart failure; E78.5 Hyperlipidemia, unspecified; I25.10 Atherosclerotic heart disease of native coronary artery without angina pectoris; E78.00 Pure hypercholesterolemia, unspecified; E66.9 Obesity, unspecified; I35.0 Nonrheumatic aortic (valve) stenosis; F41.9 Anxiety disorder, unspecified; F32.9 Major depressive disorder, single episode, unspecified; Z79.82 Long term (current) use of aspirin; Z79.02 Long term (current) use of antithrombotics/antiplatelets; Z79.899 Other long term (current) drug therapy; Z86.32 Personal history of gestational diabetes; Z90.710 Acquired absence of both cervix and uterus; Y83.8 Other surgical procedures as the cause of abnormal reaction of the patient, or of later complication, without mention of misadventure at the time of the procedure | CPT/HCPCS: 99214 ==